=== PATIENT | female | born 1975 | race Caucasian/White ===

== ENCOUNTER 2016-12-11 17:56 | Emergency (ER) | payer OTHER ==
[2016-12-11] MEDS ORDERED: Aspirin 81 MG Tab.Chew PO ONE (18:17)
[2016-12-11] MEDS ORDERED: Sodium Chloride 0.9% 10 ML Syringe FLUSH PRN (18:20)
[2016-12-11 18:26] VITALS: BP 133/94
[2016-12-11] MEDS ORDERED: Alum Hydrox/Mag Hydrox/Simeth 30 ML, Lidocaine 2% 15 ML PO ONE ×2 (19:24)
[2016-12-11] MEDS ORDERED: Ketorolac 30 MG/ML SDV IVPUSH ONE (19:25)
--- NOTE | 2016-12-11 20:00 | EDM.PDOC ---
ED HPI GENERAL MEDICAL PROBLEM - General Chief Complaint: Chest Pain Stated Complaint: CHEST PAIN Time Seen by Provider: 12/11/16 18:31 Source of Information: Reports: Patient History Limitations: Reports: No limitations - History of Present Illness INITIAL COMMENTS - FREE TEXT/NARRATIVE: 41-year-old female presents for evaluation and treatment of chest pain. Patient reports the chest pain is located in the center of her chest and radiates up into her jaw and her neck. Denies any radiation into her back or arm. Describes it as a pressure sensation. She reports that it started last night. She states that it went away on its own. She states she's had chest discomfort throughout the day but it is always gone away. Reports that it has been constant since about 5:00 this evening. She reports associated symptoms of epigastric pain, diaphoresis and shortness of breath. She denies any fevers, chills, cough, nausea or vomiting. The patient reports that she is a type I diabetic on insulin pump. reports that she is a current everyday smoker and smokes a pack a day. She denies any cardiac history herself. She states she's never had a heart attack or arrhythmia. Patient reports family history of a grandmother with heart attacks reports this was an old age. She reports several strokes in her family. Chest Pain Score (Numeric/FACES): 8 - Related Data Allergies Allergy/AdvReac Type Severity Reaction Status Date / Time lisinopril Allergy Cough Verified 12/11/16 18:08 Home Meds: Home Meds Cholecalciferol (Vitamin D3) [Vitamin D] 10,000 unit PO WEEKLY 10/10/14 [History ] Insulin Aspart [NovoLOG] 0 unit SQ WITHMEALSANDBED 10/10/14 [History] Escitalopram Oxalate [Lexapro] 20 mg PO DAILY 05/18/15 [History] Levothyroxine 125 mcg PO ACBREAKFAST 05/18/15 [History] Zolpidem [Ambien] 12/11/16 [History] Past Medical History Other HEENT History: wears eyeglasses Other 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: L) elbow, L) foot fx's Endocrine/Metabolic History: Reports: Diabetes, type I - Past Surgical History HEENT Surgical History: Reports: Oral surgery Social & Family History - Tobacco Use Smoking Status *Q: Current Every Day Smoker Years of Tobacco use: 20 Packs/Tins Daily: 1 - Alcohol Use Days Per Week of Alcohol Use: 2 Number of Drinks Per Day: 1 Total Drinks Per Week: 2 - Recreational Drug Use Recreational Drug Use: No ED ROS GENERAL - Review of Systems Review Of Systems: See Below Constitutional: Reports: diaphoresis. Denies: fever Respiratory: Reports: Shortness of Breath. Denies: Cough Cardiovascular: Reports: Chest pain GI/Abdominal: Reports: Abdominal pain (epigastric). Denies: Nausea, Vomiting ED EXAM, GENERAL - Physical Exam Exam: See Below Exam Limited By: No limitations General Appearance: alert, WD/WN, no apparent distress Respiratory/Chest: no respiratory distress, lungs clear, normal breath sounds Cardiovascular: normal peripheral pulses, regular rate, rhythm, no murmur GI/Abdominal: Normal Bowel Sounds, Soft, Non-Tender Neurological: alert, oriented, normal cognition Psychiatric: normal affect, normal mood Skin Exam: Warm, Dry, Normal color EKG INTERPRETATION EKG Date: 12/11/16 Time: 18:15 Rhythm: NSR Rate (beats/min): 99 [place]: normal P-wave: present QRS: normal ST-T: normal QT: normal EKG Interpretation Comments: NSR at 99bpm. No acute changes. Reviewed by myself and Dr. Mathur. Course - Vital Signs Last Recorded V/S: Last Vital Signs Temp 36.9 C 12/11/16 18:05 Pulse 104 H 12/11/16 18:05 Resp 18 12/11/16 18:05 BP 133/94 H 12/11/16 18:05 Pulse Ox 99 12/11/16 18:05 - Orders/Labs/Meds Orders: Active Orders 24 hr Category Date Time Status Cardiac Monitoring [RC] . DIRECTED Care 12/11/16 18:17 Active EKG Documentation Completion [RC] STAT Care 12/11/16 18:17 Active Peripheral IV Care [RC] . DIRECTED Care 12/11/16 18:20 Active Chest 1V Frontal [CR] Stat Exams 12/11/16 18:17 Taken Peripheral IV Insertion Adult [OM.PC] Routine Oth 12/11/16 18:20 Ordered Labs: Laboratory Tests 12/11/16 12/11/16 12/11/16 Range/Units 18:21 18:21 18:21 WBC 10.37 H (3.98-10.04) K/mm3 RBC 5.22 (3.98-5.22) M/mm3 Hgb 16.2 H (11.2-15.7) gm/L Hct 45.3 H (34.1-44.9) % MCV 86.8 (79.4-94.8) fl MCH 31.0 (25.6-32.2) pg MCHC 35.8 H (32.2-35.5) g/dl RDW Std Deviation 39.4 (36.4-46.3) fL Plt Count 246 (182-369) K/mm3 MPV 10.2 (9.4-12.3) fl Neut % (Auto) 56.3 (34.0-71.1) % Lymph % (Auto) 33.1 (19.3-51.7) % [place] % (Auto) 8.1 (4.7-12.5) % Eos % (Auto) 1.8 (0.7-5.8) Baso % (Auto) 0.5 (0.1-1.2) % Neut # (Auto) 5.84 (1.56-6.13) K/mm3 Lymph # (Auto) 3.43 (1.18-3.74) K/mm3 [place] # (Auto) 0.84 H (0.24-0.36) K/mm3 Eos # (Auto) 0.19 (0.04-0.36) K/mm3 Baso # (Auto) 0.05 (0.01-0.08) K/mm3 PT 10.0 (8.0-13.0) SECONDS INR 0.92 D-Dimer, Quantitative (0.19-0.59) mg/L Sodium 135 L (136-145) mEq/L Potassium 3.7 (3.5-5.1) mEq/L Chloride 102 (98-107) mEq/L Carbon Dioxide 24 (21-32) mEq/L Anion Gap 12.7 (5-15) BUN 13 (7-18) mg/dL Creatinine 0.8 (0.55-1.02) mg/dL Est Cr Clr Drug Dosing TNP Estimated GFR (MDRD) > 60 (>60) mL/min BUN/Creatinine Ratio 16.3 (14-18) Glucose 170 H (74-106) mg/dL Calcium 8.9 (8.5-10.1) mg/dL Total Bilirubin 0.4 (0.2-1.0) mg/dL AST 12 L (15-37) U/L ALT 20 (14-59) U/L Alkaline Phosphatase 74 (46-116) U/L CK-MB (CK-2) 0.9 (0-3.6) ng/ml Troponin I < 0.017 (0.00-0.056) ng/mL Total Protein 7.1 (6.4-8.2) g/dl Albumin 3.7 (3.4-5.0) g/dl Globulin 3.4 gm/dL Albumin/Globulin Ratio 1.1 (1-2) Lipase 99 (73-393) U/L 12/11/16 Range/Units 18:21 WBC (3.98-10.04) K/mm3 RBC (3.98-5.22) M/mm3 Hgb (11.2-15.7) gm/L Hct (34.1-44.9) % MCV (79.4-94.8) fl MCH (25.6-32.2) pg MCHC (32.2-35.5) g/dl RDW Std Deviation (36.4-46.3) fL Plt Count (182-369) K/mm3 MPV (9.4-12.3) fl Neut % (Auto) (34.0-71.1) % Lymph % (Auto) (19.3-51.7) % [place] % (Auto) (4.7-12.5) % Eos % (Auto) (0.7-5.8) Baso % (Auto) (0.1-1.2) % Neut # (Auto) (1.56-6.13) K/mm3 Lymph # (Auto) (1.18-3.74) K/mm3 [place] # (Auto) (0.24-0.36) K/mm3 Eos # (Auto) (0.04-0.36) K/mm3 Baso # (Auto) (0.01-0.08) K/mm3 PT (8.0-13.0) SECONDS INR D-Dimer, Quantitative < 0.19 L (0.19-0.59) mg/L Sodium (136-145) mEq/L Potassium (3.5-5.1) mEq/L Chloride (98-107) mEq/L Carbon Dioxide (21-32) mEq/L Anion Gap (5-15) BUN (7-18) mg/dL Creatinine (0.55-1.02) mg/dL Est Cr Clr Drug Dosing Estimated GFR (MDRD) (>60) mL/min BUN/Creatinine Ratio (14-18) Glucose (74-106) mg/dL Calcium (8.5-10.1) mg/dL Total Bilirubin (0.2-1.0) mg/dL AST (15-37) U/L ALT (14-59) U/L Alkaline Phosphatase (46-116) U/L CK-MB (CK-2) (0-3.6) ng/ml Troponin I (0.00-0.056) ng/mL Total Protein (6.4-8.2) g/dl Albumin (3.4-5.0) g/dl Globulin gm/dL Albumin/Globulin Ratio (1-2) Lipase (73-393) U/L Meds: Medications Discontinued Medications Generic Name Dose Route Start Last Admin Trade Name Freq PRN Reason Stop Dose Admin Aspirin 324 mg 12/11/16 18:17 12/11/16 19:06 Aspirin PO 12/11/16 18:18 324 mg ONETIME ONE Administration Al Hydroxide/Mg Hydroxide 30 0 ml 12/11/16 19:24 12/11/16 19:31 ml/ Lidocaine HCl 15 ml PO 12/11/16 19:25 45 ml ONETIME ONE Administration Ketorolac Tromethamine 30 mg 12/11/16 19:25 12/11/16 19:31 Toradol IVPUSH 12/11/16 19:26 30 mg ONETIME ONE Administration Sodium Chloride 10 ml 12/11/16 18:20 12/11/16 19:07 Saline Flush FLUSH 10 ml ASDIRECTED PRN Administration Keep Vein Open - Radiology Interpretation Free Text/Narrative:: chest 1 view shows no acute intrathoracic process. - Re-Assessments/Exams Free Text/Narrative Re-Assessment/Exam: 12/11/16 19:26 Labs returned. WBC is mildly elevated at 10.37, hgb is 16.2 and plts are 246 Sodium is 135, potassium is 3.7, chloride is 102. Anion gap is 12.7. Glucose is 170 Pt is 10.0 and INR is 0.92 CKMB is within normal limits at 0.9 trop is within normal limits <0.017 lipase is 99 I reviewed the labs, ekg and chest xray with the patient. I added on a d dimer as the patient continues to have chest pain and continues to be tachycardic in the low 100s. Ordered toradol and a GI cocktail for symptom relief. 12/11/16 20:00 D dimer returned negative at <0.19 Patient feels greatly improved after toradol and the GI cocktail. Will discharge home at this time. Discharge instructions as documented. Departure - Departure Time of Disposition: 20:01 Disposition: Home, Self-Care 01 Condition: good Clinical Impression: GERD (gastroesophageal reflux disease) Instructions: Gastroesophageal Reflux Disease, Adult Referrals: Anna Thomsa PA [Primary Care Provider] - Forms: ED Department Discharge Additional Instructions: Continue with your current plan of care. May take [id number] Tums or another antacid if you experience discomfort. Follow up primary care provider as needed. Please return to the ER should your symptoms change or worsen. - My Orders Last 24 Hours: My Active Orders 12/11/16 18:17 Cardiac Monitoring [RC] . DIRECTED EKG Documentation Completion [RC] STAT Chest 1V Frontal [CR] Stat 12/11/16 18:20 Peripheral IV Care [RC] . DIRECTED Peripheral IV Insertion Adult [OM.PC] Routine - Assessment/Plan Last 24 Hours: My Active Orders 12/11/16 18:17 Cardiac Monitoring [RC] . DIRECTED EKG Documentation Completion [RC] STAT Chest 1V Frontal [CR] Stat 12/11/16 18:20 Peripheral IV Care [RC] . DIRECTED Peripheral IV Insertion Adult [OM.PC] Routine
--- NOTE | 2016-12-12 08:28 | CR ---
Chest: Portable view of the chest was obtained. Comparison: Previous chest x-ray of 05/22/16. Heart size and mediastinum are normal. Lungs are clear. Bony structures are grossly intact. Impression: 1. Nothing acute is identified on portable chest x-ray. Diagnostic code #1
== END 2016-12-11 20:29 | disposition home or self-care (01) ==
LOC: JD.ED 17:56
DX: K21.9 Gastro-esophageal reflux disease without esophagitis (principal); E10.9 Type 1 diabetes mellitus without complications; F17.210 Nicotine dependence, cigarettes, uncomplicated; Z79.899 Other long term (current) drug therapy; Z88.8 Allergy status to other drugs, medicaments and biological substances
CPT/HCPCS: 36415; 71010; 80053; 82553; 83690; 84484; 85025; 85379; 85610; 93005; 96374; 99285; A9270; J1885; J7050; 99284

== ENCOUNTER 2017-07-29 12:40 | Emergency (ER) | payer BC ==
[2017-07-29 13:04] VITALS: BP 131/95
[2017-07-29] MEDS ORDERED: Famotidine 20 MG/2 ML SDV IVPUSH ONE (13:14)
[2017-07-29] MEDS ORDERED: Ondansetron 4 MG/2 ML SDV IVPUSH ONE (13:14)
[2017-07-29] MEDS ORDERED: Sodium Chloride 0.9% 10 ML Syringe FLUSH PRN (13:14)
[2017-07-29] MEDS ORDERED: HYDROmorphone 1 MG/ML Syringe IVPUSH ONE (13:14)
[2017-07-29] MEDS ORDERED: Sodium Chloride 0.9% 1,000 ML IV SCH (13:15)
--- NOTE | 2017-07-29 13:22 | EDM.PDOC ---
ED HPI GENERAL MEDICAL PROBLEM - General Chief Complaint: Abdominal Pain Stated Complaint: ABDOMINAL PAIN Time Seen by Provider: 07/29/17 12:49 Source of Information: Reports: Patient, RN Notes Reviewed - History of Present Illness INITIAL COMMENTS - FREE TEXT/NARRATIVE: 42-year-old female comes in with abdominal pain nausea and 2 episodes of diarrhea yesterday. She states she started with nonspecific mid abdominal discomfort yesterday early afternoon about 24 hours ago. She did become nauseated and that has continued. She has not been eating, drinking some but not a lot of fluids. She did have a loose stool yesterday afternoon followed by one episode of very watery diarrhea. There is been no further diarrhea. She continues with mid and right-sided abdominal pain with some radiation to her right flank and back. No fever or chills. History of prior cholecystectomy. She still does have her appendix. No voiding symptomatology. She is diabetic. She has an insulin pump. She states her sugars have been running okay, around 200. Right Lower Abdomen Pain Score (Numeric/FACES): 8 - Related Data Allergies Allergy/AdvReac Type Severity Reaction Status Date / Time lisinopril Allergy Cough Verified 07/29/17 12:52 Home Meds: Home Meds Cholecalciferol (Vitamin D3) [Vitamin D] 10,000 unit PO WEEKLY 10/10/14 [History ] Insulin Aspart [NovoLOG] 0 unit SQ WITHMEALSANDBED 10/10/14 [History] Escitalopram Oxalate [Lexapro] 20 mg PO DAILY 05/18/15 [History] Levothyroxine 175 mcg PO ACBREAKFAST 05/18/15 [History] Zolpidem [Ambien] 12.5 mg PO QPM PRN 12/11/16 [History] Past Medical History HEENT History: Reports: Impaired Vision Other 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 History: 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: left foot fracture in past Psychiatric History: Reports: Depression Endocrine/Metabolic History: Reports: Diabetes, Type I, Hypothyroidism - Past Surgical History HEENT Surgical History: Reports: Oral Surgery GI Surgical History: Reports: Cholecystectomy Social & Family History - Tobacco Use Smoking Status *Q: Former Smoker Years of Tobacco use: 20 Packs/Tins Daily: 1 Used Tobacco, but Quit: Yes Month Tobacco Last Used: unknown - Caffeine Use Caffeine Use: Reports: Coffee, Soda - Alcohol Use Days Per Week of Alcohol Use: 2 Number of Drinks Per Day: 1 Total Drinks Per Week: 2 - Recreational Drug Use Recreational Drug Use: No ED ROS GENERAL - Review of Systems Review Of Systems: See Below Constitutional: Denies: Fever, Chills, Diaphoresis HEENT: Reports: No Symptoms Respiratory: Denies: Shortness of Breath, Pleuritic Chest Pain Cardiovascular: Denies: Chest Pain GI/Abdominal: Reports: Abdominal Pain, Diarrhea, Nausea. Denies: Constipation, Vomiting Musculoskeletal: Reports: Other (Feel somewhat achy) Skin: Reports: No Symptoms Neurological: Reports: No Symptoms ED EXAM, GI/ABD - Physical Exam Exam: See Below General Appearance: Alert, Mild Distress Throat/Mouth: Normal Inspection, Other Head: No: Facial Swelling (Oral mucosa is somewhat dry) Neck: Supple, Full Range of Motion Respiratory/Chest: No Respiratory Distress, Lungs Clear, Normal Breath Sounds Cardiovascular: Regular Rate, Rhythm GI/Abdominal Exam: Soft, Tender (Moderate tenderness right mid abdomen mild tenderness right upper quadrant, right lower quad and left lower abdomen). No: Guarding, Rebound Back Exam: CVA Tenderness (R) (Mild) Extremities: Normal Inspection, Normal Range of Motion Neurological: Alert, Oriented, No Motor/Sensory Deficits Skin Exam: Warm, Dry, Normal Color Course - Vital Signs Last Recorded V/S: Last Vital Signs Temp 98.4 F 07/29/17 12:46 Pulse 99 07/29/17 12:46 Resp 12 07/29/17 12:46 BP 131/95 H 07/29/17 12:46 Pulse Ox 100 07/29/17 12:46 - Orders/Labs/Meds Orders: Active Orders 24 hr Category Date Time Status Peripheral IV Care [RC] . DIRECTED Care 07/29/17 13:14 Active Sodium Chloride 0.9% [Normal Saline] 1,000 ml Med 07/29/17 13:15 Active IV ONETIME Sodium Chloride 0.9% [Saline Flush] Med 07/29/17 13:14 Active 10 ml FLUSH ASDIRECTED PRN Peripheral IV Insertion Adult [OM.PC] Stat Oth 07/29/17 13:13 Ordered Medication Orders Sodium Chloride (Normal Saline) 1,000 mls @ 999 mls/hr IV ONETIME [facility] Last Admin: 07/29/17 13:26 Dose: 999 mls/hr Sodium Chloride (Saline Flush) 10 ml FLUSH ASDIRECTED PRN PRN Reason: Keep Vein Open Last Admin: 07/29/17 13:28 Dose: 10 ml Labs: Laboratory Tests 07/29/17 07/29/17 07/29/17 Range/Units 13:00 13:25 13:25 WBC 7.97 (3.98-10.04) K/mm3 RBC 5.06 (3.98-5.22) M/mm3 Hgb 15.6 (11.2-15.7) gm/L Hct 44.2 (34.1-44.9) % MCV 87.4 (79.4-94.8) fl MCH 30.8 (25.6-32.2) pg MCHC 35.3 (32.2-35.5) g/dl RDW Std Deviation 40.6 (36.4-46.3) fL Plt Count 254 (182-369) K/mm3 MPV 9.8 (9.4-12.3) fl Neut % (Auto) 53.7 (34.0-71.1) % Lymph % (Auto) 33.2 (19.3-51.7) % [place] % (Auto) 10.0 (4.7-12.5) % Eos % (Auto) 2.3 (0.7-5.8) Baso % (Auto) 0.5 (0.1-1.2) % Neut # (Auto) 4.28 (1.56-6.13) K/mm3 Lymph # (Auto) 2.65 (1.18-3.74) K/mm3 [place] # (Auto) 0.80 H (0.24-0.36) K/mm3 Eos # (Auto) 0.18 (0.04-0.36) K/mm3 Baso # (Auto) 0.04 (0.01-0.08) K/mm3 Sodium (136-145) mEq/L Potassium (3.5-5.1) mEq/L Chloride (98-107) mEq/L Carbon Dioxide (21-32) mEq/L Anion Gap (5-15) BUN (7-18) mg/dL Creatinine (0.55-1.02) mg/dL Est Cr Clr Drug Dosing mL/min Estimated GFR (MDRD) (>60) mL/min BUN/Creatinine Ratio (14-18) Glucose (74-106) mg/dL Calcium (8.5-10.1) mg/dL Total Bilirubin (0.2-1.0) mg/dL AST (15-37) U/L ALT (14-59) U/L Alkaline Phosphatase (46-116) U/L C-Reactive Protein < 0.2 (<1.0) mg/dL Total Protein (6.4-8.2) g/dl Albumin (3.4-5.0) g/dl Globulin gm/dL Albumin/Globulin Ratio (1-2) HCG, Qual (NEGATIVE) Urine Color Yellow (Yellow) Urine Appearance Clear (Clear) Urine pH 6.5 (5.0-8.0) Ur Specific [place] 1.015 (1.005-1.030) Urine Protein Negative (Negative) Urine Glucose (UA) Negative (Negative) Urine Ketones Negative (Negative) Urine Occult Blood Negative (Negative) Urine Nitrite Negative (Negative) Urine Bilirubin Negative (Negative) Urine Urobilinogen 1.0 (0.2-1.0) Ur Leukocyte Esterase Negative (Negative) Urine RBC 0-5 (0-5) /hpf Urine WBC 0-5 (0-5) /hpf Ur Epithelial Cells 0-5 (0-5) /hpf Urine Bacteria Few (FEW) /hpf Urine Mucus Not seen (FEW) /hpf 07/29/17 07/29/17 Range/Units 13:25 13:25 WBC (3.98-10.04) K/mm3 RBC (3.98-5.22) M/mm3 Hgb (11.2-15.7) gm/L Hct (34.1-44.9) % MCV (79.4-94.8) fl MCH (25.6-32.2) pg MCHC (32.2-35.5) g/dl RDW Std Deviation (36.4-46.3) fL Plt Count (182-369) K/mm3 MPV (9.4-12.3) fl Neut % (Auto) (34.0-71.1) % Lymph % (Auto) (19.3-51.7) % [place] % (Auto) (4.7-12.5) % Eos % (Auto) (0.7-5.8) Baso % (Auto) (0.1-1.2) % Neut # (Auto) (1.56-6.13) K/mm3 Lymph # (Auto) (1.18-3.74) K/mm3 [place] # (Auto) (0.24-0.36) K/mm3 Eos # (Auto) (0.04-0.36) K/mm3 Baso # (Auto) (0.01-0.08) K/mm3 Sodium 139 (136-145) mEq/L Potassium 3.9 (3.5-5.1) mEq/L Chloride 104 (98-107) mEq/L Carbon Dioxide 24 (21-32) mEq/L Anion Gap 14.9 (5-15) BUN 7 (7-18) mg/dL Creatinine 0.7 (0.55-1.02) mg/dL Est Cr Clr Drug Dosing 83.65 mL/min Estimated GFR (MDRD) > 60 (>60) mL/min BUN/Creatinine Ratio 10.0 L (14-18) Glucose 160 H (74-106) mg/dL Calcium 9.0 (8.5-10.1) mg/dL Total Bilirubin 0.4 (0.2-1.0) mg/dL AST 14 L (15-37) U/L ALT 26 (14-59) U/L Alkaline Phosphatase 60 (46-116) U/L C-Reactive Protein (<1.0) mg/dL Total Protein 7.1 (6.4-8.2) g/dl Albumin 3.5 (3.4-5.0) g/dl Globulin 3.6 gm/dL Albumin/Globulin Ratio 1.0 (1-2) HCG, Qual Negative (NEGATIVE) Urine Color (Yellow) Urine Appearance (Clear) Urine pH (5.0-8.0) Ur Specific [place] (1.005-1.030) Urine Protein (Negative) Urine Glucose (UA) (Negative) Urine Ketones (Negative) Urine Occult Blood (Negative) Urine Nitrite (Negative) Urine Bilirubin (Negative) Urine Urobilinogen (0.2-1.0) Ur Leukocyte Esterase (Negative) Urine RBC (0-5) /hpf Urine WBC (0-5) /hpf Ur Epithelial Cells (0-5) /hpf Urine Bacteria (FEW) /hpf Urine Mucus (FEW) /hpf Meds: Medications Generic Name Dose Route Start Last Admin Trade Name Freq PRN Reason Stop Dose Admin Sodium Chloride 1,000 mls @ 999 mls/hr 07/29/17 13:15 07/29/17 13:26 Normal Saline IV 999 mls/hr ONETIME CORNELIO Administration Sodium Chloride 10 ml 07/29/17 13:14 07/29/17 13:28 Saline Flush FLUSH 10 ml ASDIRECTED PRN Administration Keep Vein Open Discontinued Medications Generic Name Dose Route Start Last Admin Trade Name Freq PRN Reason Stop Dose Admin Famotidine 20 mg 07/29/17 13:14 07/29/17 13:28 Pepcid IVPUSH 07/29/17 13:15 20 mg ONETIME ONE Administration Hydromorphone HCl 0.5 mg 07/29/17 13:14 07/29/17 13:27 Dilaudid IVPUSH 07/29/17 13:15 0.5 mg ONETIME ONE Administration Hydromorphone HCl 0.5 mg 07/29/17 14:33 07/29/17 14:49 Dilaudid IVPUSH 07/29/17 14:34 0.5 mg ONETIME ONE Administration Hydromorphone HCl 0.5 mg 07/29/17 16:02 07/29/17 16:07 Dilaudid IVPUSH 07/29/17 16:03 0.5 mg ONETIME ONE Administration Ondansetron HCl 4 mg 07/29/17 13:14 07/29/17 13:27 Zofran IVPUSH 07/29/17 13:15 4 mg ONETIME ONE Administration - Re-Assessments/Exams Free Text/Narrative Re-Assessment/Exam: 07/29/17 14:36. Labs have come back relatively normal. She did get some relief initially from 0.5 mg Dilaudid and feels better with IV fluid. All the pain and cramping is once again coming back right flank with radiation to right lower abdomen. 4 we will do abdominal pelvic CT, renal protocol to rule out kidney stone. 07/29/17 16:03. Renal CT does not show a kidney stone or any dilatation of either ureter. Appendix was visualized and looks fine. She does have a fairly large 3.5 cm right ovarian cyst which may be causing her discomfort or this may be more gastrointestinal. She is starting to have more pain again so we'll give a further 0.5 mg Dilaudid IV dose before taking IV out. Discharge instructions as documented. Departure - Departure Time of Disposition: 16:04 Disposition: Home, Self-Care 01 Condition: Fair Clinical Impression: Abdominal pain Qualifiers: Abdominal location: right lower quadrant Qualified Code(s): R10.31 - Right lower quadrant pain Ovarian cyst Qualifiers: Laterality: right Qualified Code(s): N83.201 - Unspecified ovarian cyst, right side - Discharge Information Instructions: Abdominal Pain, Adult, Ovarian Cyst Referrals: Anna Thomas PA [Primary Care Provider] - Forms: ED Department Discharge Additional Instructions: Clear liquids the remainder of today, progress to careful bland diet tomorrow as tolerated, use the Zofran that you already do have if needed for any further nausea or vomiting. Consider starting probiotic twice daily, available [id number], Tylenol for mild to moderate discomfort or hydrocodone if needed for more severe pain, follow-up clinic if not getting back to normal within 2-3 days as expected, return to ED if symptoms worsening in any way. - My Orders Last 24 Hours: My Active Orders 07/29/17 13:13 Peripheral IV Insertion Adult [OM.PC] Stat 07/29/17 13:14 Peripheral IV Care [RC] . DIRECTED Sodium Chloride 0.9% [Saline Flush] 10 ml FLUSH ASDIRECTED PRN 07/29/17 13:15 Sodium Chloride 0.9% [Normal Saline] 1,000 ml IV ONETIME - Assessment/Plan Last 24 Hours: My Active Orders 07/29/17 13:13 Peripheral IV Insertion Adult [OM.PC] Stat 07/29/17 13:14 Peripheral IV Care [RC] . DIRECTED Sodium Chloride 0.9% [Saline Flush] 10 ml FLUSH ASDIRECTED PRN 07/29/17 13:15 Sodium Chloride 0.9% [Normal Saline] 1,000 ml IV ONETIME
[2017-07-29] MEDS ORDERED: HYDROmorphone 0.5 MG/0.5 ML Syringe IVPUSH ONE ×2 (14:33→16:02)
--- NOTE | 2017-07-29 15:40 | CT ---
CT abdomen and pelvis Technique: Multiple axial sections were obtained from above the dome of the diaphragm inferiorly through the pubic symphysis. Intravenous and oral contrast not utilized. Study has been performed as a ureteral stone protocol. Findings: Ureters show no dilatation. No abnormal calcifications are seen along the course of the ureters. Kidneys show no abnormal calcifications. Visualized lung bases shows nothing acute. Liver shows no focal parenchymal abnormality. Spleen appears within normal limits. Surgical clips are seen from prior cholecystectomy. Adrenal glands appear within normal limits. Pancreas appears normal. Aorta shows no aneurysmal dilatation. No retroperitoneal adenopathy or mesenteric abnormalities are seen. No pelvic mass or adenopathy is seen. Slightly complicated right ovarian cyst is seen measuring 3.5 cm in size. No free fluid is seen within the pelvis. No inflammatory change is seen. Appendix is seen which appears normal. Bone window settings were reviewed which appear within normal limits for the patient's age. Impression: 1. No renal calculi or ureteral stones are seen. No hydronephrosis is noted. 2. Right ovarian cyst measuring about 3.5 cm in size which appears slightly complicated. No free fluid seen within the pelvis. 3. Mild increased stool is noted throughout the colon. Diagnostic code #3
== END 2017-07-29 16:57 | disposition home or self-care (01) ==
LOC: JD.ED 12:40
DX: N83.201 Unspecified ovarian cyst, right side (principal); Z88.8 Allergy status to other drugs, medicaments and biological substances; Z79.899 Other long term (current) drug therapy; Z87.891 Personal history of nicotine dependence
CPT/HCPCS: 36415; 74176; 80053; 81001; 84703; 85025; 86140; 96361; 96374; 96375; 96376; 99284; J1170; J2405; J7040; J7050

== ENCOUNTER 2017-08-07 06:20 | Day surgery (SDC) | payer BC, OTHER ==
[~2017-08-07 06:20] MED LIST: Lidocaine 1%/Sod Bicarbonate in NS 8.4% 1 ML Syringe IV PRN; Sodium Chloride 0.9% 10 ML Syringe FLUSH PRN
[2017-08-07] MEDS: Lactated Ringers 1,000 ML IV SCH ×2 (07:00→13:12)
[2017-08-07] MEDS ORDERED: Sodium Chloride 0.9% 50 ML SDV ONE (07:14)
[2017-08-07] MEDS ORDERED: Lidocaine 1% with EPINEPHrine 1:100,000 20 ML MDV ONE (07:14)
[2017-08-07] MEDS ORDERED: Bupivacaine 0.5% 30 ML SDV ONE (07:14)
[2017-08-07] MEDS ORDERED: Rocuronium 50 MG/5 ML Vial ONE ×2 (07:26→09:21)
[2017-08-07] MEDS ORDERED: fentaNYL 250 MCG/5 ML SDV ONE (07:26)
[2017-08-07] MEDS ORDERED: Midazolam 1 MG/ML 2 ML SDV ONE (07:26)
[2017-08-07] MEDS ORDERED: Ondansetron 4 MG/2 ML SDV ONE (07:26)
[2017-08-07] MEDS ORDERED: Propofol 200 MG/20 ML SDV ONE (07:26)
[2017-08-07] MEDS ORDERED: Dexamethasone 4 MG/ML 5 ML MDV ONE (07:26)
[2017-08-07] MEDS ORDERED: Lidocaine 1% 4 ML ONE (07:26)
[2017-08-07] MEDS ORDERED: ceFAZolin 1 GM Vial ONE (07:31)
[2017-08-07] MEDS ORDERED: HYDROmorphone 1 MG/ML Syringe ONE ×2 (07:32→09:12)
--- NOTE | 2017-08-07 07:48 | PCM.PREANE ---
Preanesthetic Assessment - Anesthesia/Transfusion/Family Hx Anesthesia History: Prior Anesthesia Without Reaction (versed not work) Family History of Anesthesia Reaction: No Transfusion History: No Prior Transfusion(s) - Review of Systems General: No Symptoms Pulmonary: No Symptoms Cardiovascular: No Symptoms Gastrointestinal: Abdominal Pain (cyst) Neurological: No Symptoms Other: Reports: Diabetes, Thyroid Problems, Sinus Problem, Depression, Anxiety - Physical Assessment NPO Status Date: 08/06/17 NPO Status Time: 22:00 O2 Sat by Pulse Oximetry: 97 Respiratory Rate: 16 Vital Signs: Last Vital Signs Temp 98.1 F 08/07/17 06:30 Pulse 95 08/07/17 06:30 Resp 16 08/07/17 06:30 BP 125/89 08/07/17 06:30 Pulse Ox 97 08/07/17 06:30 Height: 5 ft 5 in Weight: 96.615 kg ASA Class: 3 Mental Status: Alert & Oriented x3 Airway Class: Mallampati = 1 Dentition: Reports: Normal Dentition Thyro-Mental Finger Breadths: 3 Mouth Opening Finger Breadths: 3 ROM/Head Extension: Full Lungs: Clear to Auscultation, Normal Respiratory Effort Cardiovascular: Regular Rate, Regular Rhythm - Lab Values: Laboratory Last Values WBC 7.57 K/mm3 (3.98-10.04) 08/07/17 06:55 RBC 4.59 M/mm3 (3.98-5.22) 08/07/17 06:55 Hgb 14.4 gm/L (11.2-15.7) 08/07/17 06:55 Hct 40.3 % (34.1-44.9) 08/07/17 06:55 MCV 87.8 fl (79.4-94.8) 08/07/17 06:55 MCH 31.4 pg (25.6-32.2) 08/07/17 06:55 MCHC 35.7 g/dl (32.2-35.5) H 08/07/17 06:55 RDW Std Deviation 39.8 fL (36.4-46.3) 08/07/17 06:55 Plt Count 233 K/mm3 (182-369) 08/07/17 06:55 MPV 10.2 fl (9.4-12.3) 08/07/17 06:55 Neut % (Auto) 55.6 % (34.0-71.1) 08/07/17 06:55 Lymph % (Auto) 31.6 % (19.3-51.7) 08/07/17 06:55 Coffee % (Auto) 9.8 % (4.7-12.5) 08/07/17 06:55 Eos % (Auto) 2.2 (0.7-5.8) 08/07/17 06:55 Baso % (Auto) 0.8 % (0.1-1.2) 08/07/17 06:55 Neut # (Auto) 4.21 K/mm3 (1.56-6.13) 08/07/17 06:55 Lymph # (Auto) 2.39 K/mm3 (1.18-3.74) 08/07/17 06:55 Coffee # (Auto) 0.74 K/mm3 (0.24-0.36) H 08/07/17 06:55 Eos # (Auto) 0.17 K/mm3 (0.04-0.36) 08/07/17 06:55 Baso # (Auto) 0.06 K/mm3 (0.01-0.08) 08/07/17 06:55 FBS 234 - Allergies Allergies/Adverse Reactions: Allergies Allergy/AdvReac Type Severity Reaction Status Date / Time lisinopril Allergy Cough Verified 08/06/17 12:52 - Blood Blood Available: Yes - Acknowledgements Anesthesia Type Planned: General Anesthesia Pt an Appropriate Candidate for the Planned Anesthesia: Yes Alternatives and Risks of Anesthesia Discussed w Pt/Guardian: Yes Pt/Guardian Understands and Agrees with Anesthesia Plan: Yes PreAnesthesia Questionnaire HEENT History: Reports: Allergic Rhinitis, Impaired Vision Other HEENT History: wears eyeglasses Cardiovascular History: Reports: High Cholesterol Respiratory History: Reports: Asthma Gastrointestinal History: Reports: GERD, Other (See Below) Other Gastrointestinal History: nausea, vomiting, gastric ulcer Genitourinary History: Reports: STD, Urinary Incontinence 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, , Other (See Below) Other OB/BYN History: genital warts, right ovarian cyst, pelvic pain Other 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: left foot fracture, adductor tendinitis, left hip greater trochanteric bursitis, joint pain Neurological History: Reports: None Psychiatric History: Reports: Anxiety, Depression, Other (See Below) Other Psychiatric History: insomnia Endocrine/Metabolic History: Reports: Diabetes, Type I, Hypothyroidism, Vitamin D Deficiency Hematologic History: Reports: None Immunologic History: Reports: None Oncologic (Cancer) History: Reports: None Dermatologic History: Reports: None - Past Surgical History Head Surgeries/Procedures: Reports: None HEENT Surgical History: Reports: Oral Surgery Cardiovascular Surgical History: Reports: None Respiratory Surgical History: Reports: None GI Surgical History: Reports: Cholecystectomy, Colonoscopy, EGD Female Surgical History: Reports: Endometrial Ablation, Tubal Ligation Endocrine Surgical History: Reports: None Neurological Surgical History: Reports: None Musculoskeletal Surgical History: Reports: None Oncologic Surgical History: Reports: None - SUBSTANCE USE Smoking Status *Q: Former Smoker (quit 3 months ago) Tobacco Use Within Last Twelve Months: Cigarettes Second Hand Smoke Exposure: No Days Per Week of Alcohol Use: 1 Number of Drinks Per Day: 1 Total Drinks Per Week: 1 Recreational Drug Use History: No - HOME MEDS Home Medications: Home Meds Insulin Aspart [NovoLOG] 0 unit SQ WITHMEALSANDBED 10/10/14 [History] Escitalopram Oxalate [Lexapro] 20 mg PO DAILY 05/18/15 [History] Levothyroxine 175 mcg PO Q48H 05/18/15 [History] Zolpidem [Ambien] 12.5 mg PO QPM PRN 12/11/16 [History] Cholecalciferol (Vitamin D3) [Vitamin D3] 50,000 unit PO MOREIRA 08/06/17 [History] Hydrocodone/Acetaminophen [Hydrocodon-Acetaminophen 5-325] 1 - 2 tab PO Q6H PRN 08/06/17 [History] Ibuprofen 600 mg PO Q6H PRN 08/06/17 [History] LORazepam [LORazepam] 0.5 mg PO BID PRN 08/06/17 [History] Levothyroxine 150 mcg PO Q48H 08/06/17 [History] Ondansetron [Ondansetron ODT] 4 mg PO TID PRN 08/06/17 [History] - CURRENT (IN HOUSE) MEDS Current Meds: Current Medications Lactated Ringer's (Ringers, Lactated) 1,000 mls @ 125 mls/hr IV ASDIRECTED CORNELIO Stop: 08/07/17 18:00 Last Admin: 08/07/17 07:00 Dose: 125 mls/hr Lidocaine/Sodium Bicarbonate (Buffered Lidocaine 1% In Ns 8.4%) 0.25 ml IV ONETIME PRN PRN Reason: Prior to IV Start Stop: 08/07/17 18:00 Last Admin: 08/07/17 07:00 Dose: 0.25 ml Sodium Chloride (Saline Flush) 10 ml FLUSH ASDIRECTED PRN PRN Reason: Keep Vein Open Stop: 08/07/17 18:00 Discontinued Medications Bupivacaine HCl (Marcaine 0.5%) Confirm Administered Dose 30 ml .ROUTE .STK-MED ONE Stop: 08/07/17 07:15 Cefazolin Sodium (Ancef) Confirm Administered Dose 2 gm .ROUTE .STK-MED ONE Stop: 08/07/17 07:32 Dexamethasone (Dexamethasone) Confirm Administered Dose 20 mg .ROUTE .STK-MED ONE Stop: 08/07/17 07:27 Fentanyl (Sublimaze) Confirm Administered Dose 250 mcg .ROUTE .STK-MED ONE Stop: 08/07/17 07:27 Hydromorphone HCl (Dilaudid) Confirm Administered Dose 1 mg .ROUTE .STK-MED ONE Stop: 08/07/17 07:33 Lidocaine HCl (Xylocaine-Mpf 1%) Confirm Administered Dose 4 mls @ as directed .ROUTE .STK-MED ONE Stop: 08/07/17 07:27 Lidocaine/Epinephrine (Xylocaine 1% With Epinephrine 1:100,000) Confirm Administered Dose 20 ml .ROUTE .STK-MED ONE Stop: 08/07/17 07:15 Midazolam HCl (Versed 1 Mg/Ml) Confirm Administered Dose 2 mg .ROUTE .STK-MED ONE Stop: 08/07/17 07:27 Ondansetron HCl (Zofran) Confirm Administered Dose 4 mg .ROUTE .STK-MED ONE Stop: 08/07/17 07:27 Propofol (Diprivan 20 Ml) Confirm Administered Dose 200 mg .ROUTE .STK-MED ONE Stop: 08/07/17 07:27 Rocuronium [place] (Zemuron) Confirm Administered Dose 50 mg .ROUTE .STK-MED ONE Stop: 08/07/17 07:27 Sodium Chloride (Normal Saline) Confirm Administered Dose 50 ml .ROUTE .STK-MED ONE Stop: 08/07/17 07:15
[2017-08-07] MEDS ORDERED: Scopolamine 1 MG Transdermal Patch TOP ONE (07:58)
[2017-08-07] MEDS ORDERED: Albuterol 0.083% 2.5 MG/3 ML Neb Soln NEB ONE (08:31)
[2017-08-07] MEDS ORDERED: Ondansetron 4 MG/2 ML SDV IVPUSH PRN (08:31)
[2017-08-07] MEDS ORDERED: HYDROmorphone 0.5 MG/0.5 ML Syringe IVPUSH PRN (08:31)
[2017-08-07] MEDS ORDERED: Meperidine PF 50 MG/ML Syringe IVPUSH PRN (08:31)
[2017-08-07] MEDS ORDERED: Lactated Ringers 1,000 ML ONE ×2 (08:33→10:08)
[2017-08-07] MEDS ORDERED: Neostigmine Methylsulfate 1 MG/ML 5 ML Syringe ONE (09:56)
[2017-08-07] MEDS ORDERED: Ketorolac 30 MG/ML SDV ONE (10:06)
--- NOTE | 2017-08-07 10:18 | PCM.POSTAN ---
POST ANESTHESIA ASSESSMENT - MENTAL STATUS Mental Status: Alert, Oriented - VITAL SIGNS Pulse Rate: 107 SaO2: 97 Resp Rate: 8 Blood Pressure: 151/100 Temperature: 97.8 F - RESPIRATORY Respiratory Status: Respiratory Rate WNL, Airway Patent, O2 Saturation Stable, Supplemental Oxygen - CARDIOVASCULAR CV Status: Pulse Rate WNL, Blood Pressure Stable - GASTROINTESTINAL GI Status: No Symptoms - PAIN Pain Score: 2 - POST OP HYDRATION Hydration Status: Adequate & Stable
--- NOTE | 2017-08-07 10:30 | PCM.OPNOTE ---
- General Post-Op/Procedure Note Date of Surgery/Procedure: 08/07/17 Operative Procedure(s): Laparoscopy scope assisted vaginal hysterectomy, bilateral salpingectomy and right oophorectomy. [id number] Pre Op Diagnosis: Pelvic pain, history of ablation, history of heavy menses. Post-Op Diagnosis: Same Anesthesia Technique: General ET Tube Primary Surgeon: Toy Ivan Secondary Surgeon: Pete Dorado Anesthesia Provider: Brittanie Perales Environmental Protection Specialist: Chani Reason Environmental Protection Specialist Was Necessary: Difficult procedure, assist in retraction, Asst. surgery, decrease co-morbidity and co-mortality Role of Environmental Protection Specialist: Difficult procedure, assist in retraction, Asst. surgery, decrease co-morbidity and co-mortality Fluid Replacement, Intraop: 2,000 Output, Urine Amount: 100 EBL in mLs: 300 Drain/Tube Comments:: None Complications: None Condition: Good Free Text/Narrative:: Patient was transported to operating room #2 and placed under general anesthesia with endotracheal intubation in the low dorsal lithotomy position. Prepared and draped in a sterile fashion. SCDs in place and functioning prior surgery. Patient received Ancef 2 g intravenously prior surgery. Timeout performed confirming name date of and procedure as laparoscope assisted vaginal hysterectomy with bilateral salpingectomy with possible removal of one or both ovaries in (patient had a Pap scope assisted vaginal hysterectomy bilateral salpingectomy with right oophorectomy) uterine manipulator was placed. Ocampo catheter was placed gravity drainage and removed after the procedure. The patient had 2 mL of 0.5% Marcaine injected at the umbilicus and where the midline lower abdominal incision would be made 5 mm incisions were made in pneumoperitoneum was obtained 5 mm trocar introduced at the umbilicus and at the suprapubic area inspection of the pelvis revealed no adhesions or scar tissue that were prohibited proceeding with the lab scope assisted vaginal hysterectomy. Ports were placed on the right and left lower quadrant 2 fingerbreadths 2 fingerbreadths in from the superior iliac crest transilluminating the abdomen to avoid inferior epigastric her vessel damage if possible. Grasping the right adnexa right tube and ovary were removed utilizing Enseal crossclamping activating and incising and proceeding to the triple pedicle then crossclamping and incising after activation the right round ligament proceeding caudad crossclamping activating and incising until the reflection of the lower uterine segment was able to create bladder flap and pushed caudad. The uterine vasculature was then crossclamped activated and incised same procedure was carried out on the opposite side without removal of the left ovary. A additional distal portion of fallopian tube was removed from prior tubal ligation. This was placed and posterior cul-de-sac and subsequently removed at the time of vaginal hysterectomy. Reinspection of the operative site showed no active bleeding and patient was then placed in the dorsal lithotomy position and posterior colpotomy was performed after injecting 20 mL of 0.25% lidocaine with epinephrine and multiple confluent areas and circumscribing the cervix placing long weighted speculum removed utilizing LigaSure crossclamping the uterosacral cardinal ligaments activating incising same procedure carried out on the right side. Then proceeding cephalad 2 additional pedicles were created on the left side and the right side and entry into the anterior cul-de- sac was made without difficulty as well. The uterus was removed intact with the right tube and ovary the remnant of the left tube was also removed from posterior cul-de-sac. There was no active bleeding. The posterior cul-de-sac was closed running locking suture of 0 Monocryl. The anterior posterior cuff then approximated with 0 Monocryl running locking suture. One small avulsion on the left side approximately 1 cm in length at the upper third of the vagina was suture ligated with 0 Monocryl. Reinspection with the laparoscope showed no active bleeding irrigation was carried out and irrigant was aspirated reinspection lowering pressure again showed no bleeding the pneumoperitoneum was reduced and the 4 incisions on the abdomen were closed with 3-0 Monocryl interrupted and Dermabond applied. Patient transported postanesthesia care unit in satisfactory condition after removal of Ocampo catheter. No blood transfusions were required. One set of pictures taken image 001 shows the right adnexa image 002 shows the left adnexa image 003 shows posterior cul-de-sac image 004 shows the right adnexa after removal of the tube and ovary image 005 shows the central portion of the posterior cul-de-sac image 006 shows the left adnexa with the left ovary visible on the left lower quadrant of the picture. Talked with the and all questions answered voiced satisfaction.
[2017-08-07] MEDS ORDERED: fentaNYL 100 MCG/2 ML SDV IVPUSH ONE (11:05)
[2017-08-07] MEDS ORDERED: Acetaminophen/oxyCODONE 325-5 MG Tab PO PRN (11:24)
[2017-08-07 13:11] VITALS: BP 137/96
--- NOTE | 2017-08-07 13:13 | PCM48HPAN ---
Post Anesthesia Note - EVALUATION WITHIN 48HRS OF ANESTHETIC Vital Signs in Normal Range: Yes Patient Participated in Evaluation: Yes Respiratory Function Stable: Yes Airway Patent: Yes Cardiovascular Function Stable: Yes Hydration Status Stable: Yes Pain Control Satisfactory: Yes (Patient said pain just started. is 05/14. Nurse informed) Nausea and Vomiting Control Satisfactory: Yes Mental Status Recovered: Yes
== END 2017-08-07 13:54 | disposition home or self-care (01) ==
LOC: JD.SDS 06:20
PROVIDERS: ATTEND Obstetrics & Gynecology
DX: D25.9 Leiomyoma of uterus, unspecified (principal); N70.11 Chronic salpingitis; N83.8 Other noninflammatory disorders of ovary, fallopian tube and broad ligament; M65.0 Abscess of tendon sheath; F41.9 Anxiety disorder, unspecified; J45.909 Unspecified asthma, uncomplicated; F32.9 Major depressive disorder, single episode, unspecified; A63.0 Anogenital (venereal) warts; E03.9 Hypothyroidism, unspecified; G47.00 Insomnia, unspecified; E55.9 Vitamin D deficiency, unspecified; K21.9 Gastro-esophageal reflux disease without esophagitis; E78.00 Pure hypercholesterolemia, unspecified; E10.9 Type 1 diabetes mellitus without complications; Z98.51 Tubal ligation status; Z87.891 Personal history of nicotine dependence; Z88.8 Allergy status to other drugs, medicaments and biological substances; Z79.899 Other long term (current) drug therapy; Z79.4 Long term (current) use of insulin
CPT/HCPCS: 36415; 51798; 58552; 80053; 82962; 84702; 85025; 86850; 86900; 86901; 93005; A9270; J0690; J1170; J1885; J2250; J2405; J2710; J3010; J7120; 00840; J1100; J2001; J2704

== ENCOUNTER 2019-04-23 11:39 | Emergency (ER) | payer BC ==
[~2019-04-23 11:39] MED LIST changes: +50% Dextrose in Water 50 ML Syringe ONE; -Lidocaine 1%/Sod Bicarbonate in NS 8.4% 1 ML Syringe IV PRN; -Sodium Chloride 0.9% 10 ML Syringe FLUSH PRN
[2019-04-23 11:47] VITALS: BP 141/94; PULSE 102
--- NOTE | 2019-04-23 11:49 | EDM.PDOC ---
ED HPI GENERAL MEDICAL PROBLEM - General Chief Complaint: Diabetic Complaint Stated Complaint: FAINTED Time Seen by Provider: 04/23/19 11:44 Source of Information: Reports: Patient History Limitations: Reports: No Limitations - History of Present Illness INITIAL COMMENTS - FREE TEXT/NARRATIVE: 43-year-old female brought to the ED from the OB department after she developed a 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 Patient has been insulin-dependent diabetic since age 18. She is currently controlled with an insulin pump. She states perhaps she didn't have as much for breakfast this morning as usual. She did apparently lose consciousness for a period of time and I am suspect she had a seizure. Blood sugar on scene rapid response was reported to be 56. Patient is cool clammy and diaphoretic. She now alert oriented. She did receive glucose tabs 5 that she started that she recognized that she was developing a 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 She has also been given an amp of D50 percent prior to coming to the ED. Blood sugar at the bedside is up to 239. She is feeling fine now. She will be given a diabetic dinner. On sugar will be checked 45 minutes after the dextrose was given IV. She has discontinued her insulin pump for now. She's been using insulin pumps for about 10 years. This is the third one that she's used. The nurses who attended to initially identify that she did suffer a seizure disorder lasting about 30 seconds with grand mal tonic-clonic activity. My suspicions. Onset: Today Onset Date: 04/23/19 Onset Time: 11:05 Duration: Minutes: Location: Reports: Generalized (Patient passed out on the OB richards. She recognized that she was developing hypoglycemia and had started taking glucose tablets orally. She believes she took about 5 minutes he still went unresponsive. Response was called and her blood sugar was found to be 56. She rapidly regained consciousness and normal cognition after receiving an amp of D50 IV. Her insulin pump has been discontinued.) Quality: Reports: Other Severity: Severe (Syncopal event secondary to a severe hypoglycemic reaction) Improves with: Reports: Other (Improved promptly with IV dextrose 50% 1 amp.) Worsens with: Reports: None Context: Reports: Other (Insulin-dependent of definite diabetic home expressed a insulin reaction this morning). Denies: Activity, Exercise, Lifting, Sick Contact, Trauma Associated Symptoms: Reports: Confusion, Diaphoresis, Malaise, Syncope, Other. Denies: Chest Pain, Cough, cough w sputum, Headaches, Nausea/Vomiting, Seizure Treatments PERSONAL VEHICLE ADVISOR: Reports: Other (see below) (Received an amp of D50 IV by nursing staff who attended the rapid response a recognized blood sugar low at 56. Take an oral glucose tablets 5 prior to passing out.) Headache Pain Score (Numeric/FACES): 6 - Related Data Allergies Allergy/AdvReac Type Severity Reaction Status Date / Time lisinopril AdvReac Cough Verified 04/23/19 11:42 Home Meds: Home Meds Insulin Aspart [NovoLOG] 0 unit SQ ASDIRECTED 10/10/14 [History] Cholecalciferol (Vitamin D3) [Vitamin D3] 50,000 unit PO MOREIRA 08/06/17 [History] LORazepam 0.5 mg PO BID PRN 08/06/17 [History] Ondansetron [Zofran ODT] 4 mg PO Q6H #20 tab.dis 08/07/17 [Rx] Glucagon,Human Recombinant [Glucagon Emergency Kit] 1 dose IM ASDIRECTED PRN [History] Varenicline Tartrate [Chantix] 1 tab PO BID 02/26/18 [History] Levothyroxine Sodium [Synthroid] 7 mcg PO DAILY 07/11/18 [History] buPROPion HCl [Wellbutrin Xl] 300 mg PO DAILY 07/11/18 [History] Past Medical History HEENT History: Reports: Allergic Rhinitis, Impaired Vision Other HEENT History: wears eyeglasses Cardiovascular History: Reports: High Cholesterol Respiratory History: Reports: Asthma Gastrointestinal History: Reports: GERD, Other (See Below) Other Gastrointestinal History: nausea, vomiting, gastric ulcer Genitourinary History: Reports: STD, Urinary Incontinence 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: Endometrial Ablation, , Other (See Below) Other SENIOR SALESFORCE DEVELOPER History: genital warts, right ovarian cyst, pelvic pain Other 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: left foot fracture, adductor tendinitis, left hip greater trochanteric bursitis, joint pain Neurological History: Reports: None Psychiatric History: Reports: Anxiety, Depression, Other (See Below) Other Psychiatric History: insomnia Endocrine/Metabolic History: Reports: Diabetes, Type I, Hypothyroidism, Vitamin D Deficiency Hematologic History: Reports: None Immunologic History: Reports: None Oncologic (Cancer) History: Reports: None Dermatologic History: Reports: None - Past Surgical History Female Surgical History: Reports: Endometrial Ablation, Tubal Ligation Social & Family History - Caffeine Use Caffeine Use: Reports: Coffee, Soda - Living Situation & Occupation Living situation: Reports: Single Occupation: Unemployed ED ROS GENERAL - Review of Systems Review Of Systems: See Below Constitutional: Reports: Malaise, Fatigue. Denies: Fever, Chills HEENT: Reports: Glasses Respiratory: Reports: No Symptoms Cardiovascular: Reports: No Symptoms Endocrine: Reports: Fatigue, Low Glucose GI/Abdominal: Reports: No Symptoms : Reports: Frequency Musculoskeletal: Reports: Other Skin: Reports: No Symptoms Neurological: Reports: Confusion, Dizziness (Transient confusion and dizziness with development of hypoglycemic reaction), Syncope (Due to hypoglycemic reaction this morning) ED EXAM GENERAL NO PERIP PULSE - Physical Exam Exam: See Below Exam Limited By: No Limitations General Appearance: Alert, WD/WN, No Apparent Distress, Other (Vital signs showed temperature 36.8. Pulse 102 in sinus spectra to 16 BP 1 4194 sats 98% on room air. Only complaint is that of a headache.) Eye Exam: Bilateral Eye: Normal Inspection Throat/Mouth: Normal Inspection, Normal Oropharynx, Other (He feels like she may have bitten the left side of her tongue and there is a mild neck to the left lateral tongue suggesting she may have had a mild seizure as part of her 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 There is no active bleeding however.) Head: Atraumatic ( Not lose control of her bowel or bladder.), Other Neck: Normal Inspection, Supple, Non-Tender, Full Range of Motion. No: Lymphadenopathy (L), Lymphadenopathy (R) Respiratory/Chest: No Respiratory Distress, Lungs Clear, Normal Breath Sounds, No Accessory Muscle Use Cardiovascular: Normal Peripheral Pulses, No Edema, No Gallop (Tachycardia at rest or 2/m), No Murmur, No Rub, Tachycardia GI/Abdominal: Normal Bowel Sounds, Soft, Non-Tender, No Organomegaly, No Abnormal Bruit, No Mass, Pelvis Stable Back Exam: Normal Inspection, Full Range of Motion. No: CVA Tenderness (L), CVA Tenderness (R) Extremities: Normal Inspection, Normal Range of Motion, Non-Tender, No Pedal Edema, Normal Capillary Refill Neurological: Alert, Oriented, CN II-XII Intact, Normal Cognition, No Motor/ Sensory Deficits Psychiatric: Normal Affect, Normal Mood Skin Exam: Intact, Normal Color, No Rash, Cool, Diaphoretic (Very minimally diaphoretic at this time.) Course - Vital Signs Last Recorded V/S: Last Vital Signs Temp 36.8 C 04/23/19 11:42 Pulse 102 H 04/23/19 11:42 Resp 16 04/23/19 11:42 BP 141/94 H 04/23/19 11:42 Pulse Ox 98 04/23/19 11:42 - Orders/Labs/Meds Orders: Active Orders 24 hr Category Date Time Status Blood Glucose Check, Bedside [RC] ONETIME Care 04/23/19 13:02 Active Labs: Laboratory Tests 04/23/19 04/23/19 04/23/19 Range/Units 11:20 11:20 11:20 WBC 14.29 H (3.98-10.04) K/mm3 RBC 5.42 H (3.98-5.22) M/mm3 Hgb 16.6 H (11.2-15.7) gm/dl Hct 47.6 H (34.1-44.9) % MCV 87.8 (79.4-94.8) fl MCH 30.6 (25.6-32.2) pg MCHC 34.9 (32.2-35.5) g/dl RDW Std Deviation 43.2 (36.4-46.3) fL Plt Count 308 (182-369) K/mm3 MPV 10.3 (9.4-12.3) fl Neutrophils % (Manual) 42 (40-60) % Band Neutrophils % 1 (0-10) % Lymphocytes % (Manual) 43 H (20-40) % Atypical Lymphs % 0 % Monocytes % (Manual) 12 H (2-10) % Eosinophils % (Manual) 2 (0.7-5.8) % Basophils % (Manual) 0 L (0.1-1.2) Platelet Estimate Adequate RBC Morph Comment Normal Sodium 142 (136-145) mEq/L Potassium 3.1 L (3.5-5.1) mEq/L Chloride 104 (98-107) mEq/L Carbon Dioxide 22 (21-32) mEq/L Anion Gap 19.1 H (5-15) BUN 11 (7-18) mg/dL Creatinine 0.9 (0.55-1.02) mg/dL Est Cr Clr Drug Dosing TNP Estimated GFR (MDRD) > 60 (>60) mL/min BUN/Creatinine Ratio 12.2 L (14-18) Glucose 93 (74-106) mg/dL POC Glucose (70-105) mg/dL Hemoglobin A1c 6.80 H (4.50-6.20) % Calcium 9.6 (8.5-10.1) mg/dL Total Bilirubin 0.4 (0.2-1.0) mg/dL AST 12 L (15-37) U/L ALT 22 (14-59) U/L Alkaline Phosphatase 69 (46-116) U/L C-Reactive Protein < 0.2 (<1.0) mg/dL Total Protein 8.0 (6.4-8.2) g/dl Albumin 4.2 (3.4-5.0) g/dl Globulin 3.8 gm/dL Albumin/Globulin Ratio 1.1 (1-2) 04/23/19 04/23/19 Range/Units 12:26 13:21 WBC (3.98-10.04) K/mm3 RBC (3.98-5.22) M/mm3 Hgb (11.2-15.7) gm/dl Hct (34.1-44.9) % MCV (79.4-94.8) fl MCH (25.6-32.2) pg MCHC (32.2-35.5) g/dl RDW Std Deviation (36.4-46.3) fL Plt Count (182-369) K/mm3 MPV (9.4-12.3) fl Neutrophils % (Manual) (40-60) % Band Neutrophils % (0-10) % Lymphocytes % (Manual) (20-40) % Atypical Lymphs % % Monocytes % (Manual) (2-10) % Eosinophils % (Manual) (0.7-5.8) % Basophils % (Manual) (0.1-1.2) Platelet Estimate RBC Morph Comment Sodium (136-145) mEq/L Potassium (3.5-5.1) mEq/L Chloride (98-107) mEq/L Carbon Dioxide (21-32) mEq/L Anion Gap (5-15) BUN (7-18) mg/dL Creatinine (0.55-1.02) mg/dL Est Cr Clr Drug Dosing Estimated GFR (MDRD) (>60) mL/min BUN/Creatinine Ratio (14-18) Glucose (74-106) mg/dL POC Glucose 231 H 164 H (70-105) mg/dL Hemoglobin A1c (4.50-6.20) % Calcium (8.5-10.1) mg/dL Total Bilirubin (0.2-1.0) mg/dL AST (15-37) U/L ALT (14-59) U/L Alkaline Phosphatase (46-116) U/L C-Reactive Protein (<1.0) mg/dL Total Protein (6.4-8.2) g/dl Albumin (3.4-5.0) g/dl Globulin gm/dL Albumin/Globulin Ratio (1-2) Meds: Medications Discontinued Medications Generic Name Dose Route Start Last Admin Trade Name Freq PRN Reason Stop Dose Admin Dextrose/Water 50 ml 04/23/19 11:50 04/23/19 12:00 Dextrose 50% In Water IVPUSH 50 ml ASDIRECTED PRN Administration Hypoglycemia Ibuprofen 600 mg 04/23/19 11:51 04/23/19 12:00 Motrin PO 04/23/19 11:52 600 mg ONETIME ONE Administration - Radiology Interpretation Free Text/Narrative:: 43-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 She is insulin-dependent diabetic since age 18. She is currently controlled well with an insulin pump. You need as much is normal for breakfast this morning. She started to feel unwell about 11:00 and did take 5 glucose tablets orally but unfortunately her blood sugar continued to plummet. She apparently had an unresponsive event with possible very mild seizure activity. Rapid response was called and blood sugar on scene was reported to be 56. An IV was started and she was given an amp of D50. But sugar in the ED is up to 239. It would be checked in another half an hour. Her insulin pump has been discontinued. She will have a diabetic dinner tray brought to her. She had had labs drawn in the OB department and therefore will orders a CBC and CMP. - Re-Assessments/Exams Free Text/Narrative Re-Assessment/Exam: 04/23/19 13:01 White count is 14.29 differential pending. Hemoglobin 16.6 with hematocrit of 47.6. Platelet count 308,000. Sodium 142. Potassium slightly low at 3.1. Chloride is 104 with bicarbonate of 22. Anion gap is elevated at 19.1. This is likely from lactic acidosis produced from seizure. You and is 11 with a creatinine of 0.9. Estimated GFR is greater than 60. BUN/creatinine ratio is 12.2. Glucose initially was recorded at 93. Second glucose 15 minutes after an amp of D50 was given is 231. Hemoglobin A1c is 6.80 indicating that she has very tight blood sugar control. Calcium is 9.6 with a total bilirubin of 0.4. AST is 12. Liver function otherwise normal. C-reactive protein is less than 0.2. Total protein is 8.0 with an albumin fraction of 4.2. Patient has headache and diffuse muscle pain indicating that she did probably suffer a seizure. Her blood sugars are stable at present. She is well versed in how to look after herself for hypoglycemic events as she maintains very tight control. She will be discharged to home. Off work the rest of today and tomorrow. Departure - Departure Time of Disposition: 13:26 Disposition: Home, Self-Care 01 Condition: Fair Clinical Impression: Hypoglycemic reaction to insulin, Seizure, Hypoglycemia - Discharge Information *PRESCRIPTION DRUG MONITORING PROGRAM REVIEWED*: Not Applicable *COPY OF PRESCRIPTION DRUG MONITORING REPORT IN PATIENT KATTY: Not Applicable Instructions: Hypoglycemia Referrals: Diana Belle PA-C [Primary Care Provider] - Forms: ED Department Discharge, ED Return to Work/School Form Additional Instructions: Evaluation in the emergency department after you collapsed in the workplace us morning. It appears that the syncope/collapse occurred secondary to severe 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 In type I diabetic since age 18 and have very tight control of your blood sugars with insulin pump usage. Glucose load protein today was 6.8. There is some suggestion by the nursing staff and attending Michael initially that she did suffer a tonic-clonic seizure that lasted about 30 seconds. This would account for the minor injury to the left side of your tongue on examination as well. Also counseled with a headache and the generalized body aches as the muscles will become very sore lactic acid buildup after a seizure. Initial blood sugar assessment was 56 and you therefore given an amp of D 50 dextrose sugar and sugar in the ED initially was 239. Second one was 231 and the last one was 164. You're therefore to begin your insulin treatment with your insulin pump as per your usual and eat accordingly. Home from work the rest of today. Motrin 600 mg every 6 hours as needed for body ache and headache. - My Orders Last 24 Hours: My Active Orders 04/23/19 13:02 Blood Glucose Check, Bedside [RC] ONETIME - Assessment/Plan Last 24 Hours: My Active Orders 04/23/19 13:02 Blood Glucose Check, Bedside [RC] ONETIME
[2019-04-23] MEDS ORDERED: 50% Dextrose in Water 50 ML Syringe IVPUSH PRN (11:50)
[2019-04-23] MEDS ORDERED: Ibuprofen 600 MG Tab PO ONE (11:51)
[2019-04-23 12:20] LABS: HEMOGLOBIN A1C 6.8 % (4.50-6.20)
== END 2019-04-23 13:37 | disposition home or self-care (01) ==
LOC: JD.ED 11:39
DX: E16.0 Drug-induced hypoglycemia without coma (principal); T38.3X5A Adverse effect of insulin and oral hypoglycemic [antidiabetic] drugs, initial encounter; R56.9 Unspecified convulsions; E03.9 Hypothyroidism, unspecified; F41.9 Anxiety disorder, unspecified; F32.9 Major depressive disorder, single episode, unspecified; E10.9 Type 1 diabetes mellitus without complications; Z88.8 Allergy status to other drugs, medicaments and biological substances; Z79.899 Other long term (current) drug therapy
CPT/HCPCS: 36415; 80053; 82962; 83036; 85007; 85027; 86140; 96374; 99284; A9270; J7060

== ENCOUNTER → 2019-07-07 | Day surgery (SDC) | payer BC ==
[~2019-07-07] MED LIST changes: -50% Dextrose in Water 50 ML Syringe ONE; +Lactated Ringers 1,000 ML IV SCH; +Lidocaine 1% 4 ML ONE; +Lidocaine 1%/Sod Bicarbonate in NS 8.4% 1 ML Syringe IDERM PRN; +Midazolam 1 MG/ML 2 ML SDV ONE; +Propofol 200 MG/20 ML SDV ONE; +Sodium Chloride 0.9% 10 ML Syringe FLUSH PRN; +fentaNYL 100 MCG/2 ML SDV ONE
--- NOTE | 2019-07-07 08:12 | PCM.PREANE ---
Preanesthetic Assessment - Anesthesia/Transfusion/Family Hx Anesthesia History: Prior Anesthesia Without Reaction (versed not work) Family History of Anesthesia Reaction: No Transfusion History: No Prior Transfusion(s) Intubation History: Unknown - Review of Systems General: Fatigue Pulmonary: No Symptoms (History of asthma/Smoker: 1-2 ppd times 30 years History of snoring and hypoxia at night), Cough Cardiovascular: No Symptoms (History of HTN) Gastrointestinal: No Symptoms (GERD), Constipation, Nausea, Vomiting Neurological: Headache Other: Reports: Diabetes (Am blood sugar:), Thyroid Problems (History of juan alberto's throiditis), Sinus Problem, Depression, Anxiety - Physical Assessment NPO Status Date: 07/06/19 Vital Signs: HR: BP: Sat: Resp: Temp: ASA Class: 2 Mental Status: Alert & Oriented x3 - Lab Values: All labs reviewed and noted and within acceptable ranges to proceed with scheduled procedure. - Allergies Allergies/Adverse Reactions: Allergies Allergy/AdvReac Type Severity Reaction Status Date / Time gluten Allergy Other Verified 07/06/19 15:29 wheat Allergy Other Verified 07/06/19 15:29 lisinopril AdvReac Cough Verified 07/06/19 15:29 - Anesthesia Plan Pre-Op Medication Ordered: None - Acknowledgements Anesthesia Type Planned: MAC Pt an Appropriate Candidate for the Planned Anesthesia: Yes Alternatives and Risks of Anesthesia Discussed w Pt/Guardian: Yes Pt/Guardian Understands and Agrees with Anesthesia Plan: Yes PreAnesthesia Questionnaire HEENT History: Reports: Allergic Rhinitis, Impaired Vision, Otitis Media Other HEENT History: wears eyeglasses, ear pain, eustachian tube dysfuction, hearing loss, middle ear effusion Cardiovascular History: Reports: High Cholesterol, Hypertension Respiratory History: Reports: Asthma, Other (See Below) Other Respiratory History: cough, hypoxia, dypsnea Gastrointestinal History: Reports: Celiac Disease, Chronic Constipation, GERD, Hemorrhoids, Other (See Below) Other Gastrointestinal History: nausea, vomiting, gastric ulcer Genitourinary History: Reports: STD, Urinary Incontinence Other Genitourinary History: frequency 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 SEATER History: Reports: Endometrial Ablation, , Other (See Below) Other OB/BYN History: genital warts, right ovarian cyst, pelvic pain, breast cyst, fibrocystic breast, hot flashes, ovarian cyst, vagnial discomfort, vaginal odor Other 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: left foot fracture, adductor tendinitis, left hip greater trochanteric bursitis, joint pain, heel pain, right elbow lateral epicondylitis, plantar fasciitis Neurological History: Reports: None, Headaches, Chronic, Migraines Psychiatric History: Reports: Anxiety, Depression, Other (See Below) Other Psychiatric History: insomnia, fatigue Endocrine/Metabolic History: Reports: Diabetes, Type I, Hypothyroidism, Vitamin D Deficiency Other Endocrine/Metabolic History: hashimotos thyroiditis Hematologic History: Reports: Anemia Immunologic History: Reports: None Oncologic (Cancer) History: Reports: None Dermatologic History: Reports: None Other Dermatologic History: change in nevus, cold sore, unwanted hair - Past Surgical History Head Surgeries/Procedures: Reports: None HEENT Surgical History: Reports: Oral Surgery Cardiovascular Surgical History: Reports: None Respiratory Surgical History: Reports: None GI Surgical History: Reports: Cholecystectomy, Colonoscopy, EGD Female Surgical History: Reports: Endometrial Ablation, Hysterectomy, Tubal Ligation Male Surgical History: Reports: None Endocrine Surgical History: Reports: None Neurological Surgical History: Reports: None Musculoskeletal Surgical History: Reports: None Oncologic Surgical History: Reports: None Dermatological Surgical History: Reports: None - SUBSTANCE USE Smoking Status *Q: Former Smoker Recreational Drug Use History: No - HOME MEDS Home Medications: Home Meds Insulin Aspart [NovoLOG] 0 unit SQ ASDIRECTED 10/10/14 [History] Glucagon,Human Recombinant [Glucagon Emergency Kit] 1 dose IM ASDIRECTED PRN [History] Albuterol Sulfate [Albuterol Sulfate Hfa] 1 - 2 puff INH Q4H PRN 07/06/19 [ History] Aspirin [Halfprin] 81 mg PO DAILY 07/06/19 [History] Cholecalciferol (Vitamin D3) [Vitamin D3] 5,000 unit PO DAILY 07/06/19 [History] Diclofenac Sodium [Voltaren 1% Gel] 1 dose TOP QID PRN 07/06/19 [History] Empagliflozin [Jardiance] 10 mg PO QAM 07/06/19 [History] FLUoxetine HCl [Prozac] 20 mg PO DAILY 07/06/19 [History] Ibuprofen 800 mg PO TID PRN 07/06/19 [History] Levothyroxine Sodium [Unithroid] 125 mcg PO DAILY 07/06/19 [History] Ondansetron [Zofran ODT] 4 mg PO TID PRN 07/06/19 [History] Selenium 200 mcg PO DAILY 07/06/19 [History] - CURRENT (IN HOUSE) MEDS Current Meds: Current Medications Lactated Ringer's (Ringers, Lactated) 1,000 mls @ 125 mls/hr IV ASDIRECTED CORNELIO Stop: 07/07/19 23:00 Lidocaine/Sodium Bicarbonate (Buffered Lidocaine 1% In Ns 8.4%) 0.25 ml IDERM ONETIME PRN PRN Reason: Prior to IV Start Stop: 07/07/19 18:00 Sodium Chloride (Saline Flush) 10 ml FLUSH ASDIRECTED PRN PRN Reason: Keep Vein Open Stop: 07/07/19 18:00
--- NOTE | 2019-07-07 08:54 | PCM.PREANE ---
Preanesthetic Assessment - Procedure Proposed Procedure: colonoscopy - Anesthesia/Transfusion/Family Hx Anesthesia History: Prior Anesthesia Without Reaction (versed not work) Family History of Anesthesia Reaction: No Transfusion History: No Prior Transfusion(s) Intubation History: Unknown - Review of Systems General: No Symptoms Pulmonary: Cough Cardiovascular: No Symptoms Gastrointestinal: Abdominal Pain (cramping), Nausea Neurological: Seizure (diabetic ) Other: Reports: Diabetes (Am blood sugar:), Thyroid Problems (History of juan alberto's throiditis), Sinus Problem, Depression, Anxiety - Physical Assessment NPO Status Date: 07/07/19 NPO Status Time: 04:00 Vital Signs: Last Vital Signs Temp 36.7 C 07/07/19 08:15 Pulse 91 07/07/19 08:15 Resp 16 07/07/19 08:15 BP 137/85 07/07/19 08:15 Pulse Ox 98 07/07/19 08:15 Height: 1.68 m Weight: 95.254 kg ASA Class: 2 Mental Status: Alert & Oriented x3 Airway Class: Mallampati = 2 Dentition: Reports: Normal Dentition, Caries Thyro-Mental Finger Breadths: 2 Mouth Opening Finger Breadths: 2 ROM/Head Extension: Full Lungs: Clear to Auscultation, Normal Respiratory Effort Cardiovascular: Regular Rate, Regular Rhythm - Allergies Allergies/Adverse Reactions: Allergies Allergy/AdvReac Type Severity Reaction Status Date / Time gluten Allergy Other Verified 07/06/19 15:29 wheat Allergy Other Verified 07/06/19 15:29 lisinopril AdvReac Cough Verified 07/06/19 15:29 - Blood Blood Available: No Product(s) Available: None - Anesthesia Plan Pre-Op Medication Ordered: None - Acknowledgements Anesthesia Type Planned: MAC Pt an Appropriate Candidate for the Planned Anesthesia: Yes Alternatives and Risks of Anesthesia Discussed w Pt/Guardian: Yes Pt/Guardian Understands and Agrees with Anesthesia Plan: Yes PreAnesthesia Questionnaire HEENT History: Reports: Allergic Rhinitis, Impaired Vision, Otitis Media Other HEENT History: wears eyeglasses, ear pain, eustachian tube dysfuction, hearing loss, middle ear effusion Cardiovascular History: Reports: High Cholesterol, Hypertension Respiratory History: Reports: Asthma, Other (See Below) Other Respiratory History: cough, hypoxia, dypsnea Gastrointestinal History: Reports: Celiac Disease, Chronic Constipation, GERD, Hemorrhoids, Other (See Below) Other Gastrointestinal History: nausea, vomiting, gastric ulcer Genitourinary History: Reports: STD, Urinary Incontinence Other Genitourinary History: frequency 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: Reports: Endometrial Ablation, , Other (See Below) Other OB/BYN History: genital warts, right ovarian cyst, pelvic pain, breast cyst, fibrocystic breast, hot flashes, ovarian cyst, vagnial discomfort, vaginal odor Other 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: left foot fracture, adductor tendinitis, left hip greater trochanteric bursitis, joint pain, heel pain, right elbow lateral epicondylitis, plantar fasciitis Neurological History: Reports: None, Headaches, Chronic, Migraines Psychiatric History: Reports: Anxiety, Depression, Other (See Below) Other Psychiatric History: insomnia, fatigue Endocrine/Metabolic History: Reports: Diabetes, Type I, Hypothyroidism, Vitamin D Deficiency Other Endocrine/Metabolic History: hashimotos thyroiditis Hematologic History: Reports: Anemia Immunologic History: Reports: None Oncologic (Cancer) History: Reports: None Dermatologic History: Reports: None Other Dermatologic History: change in nevus, cold sore, unwanted hair - Past Surgical History Head Surgeries/Procedures: Reports: None HEENT Surgical History: Reports: Oral Surgery Cardiovascular Surgical History: Reports: None Respiratory Surgical History: Reports: None GI Surgical History: Reports: Cholecystectomy, Colonoscopy, EGD Female Surgical History: Reports: Endometrial Ablation, Hysterectomy, Tubal Ligation Male Surgical History: Reports: None Endocrine Surgical History: Reports: None Neurological Surgical History: Reports: None Musculoskeletal Surgical History: Reports: None Oncologic Surgical History: Reports: None Dermatological Surgical History: Reports: None - SUBSTANCE USE Smoking Status *Q: Former Smoker Tobacco Use Within Last Twelve Months: No Second Hand Smoke Exposure: No Days Per Week of Alcohol Use: 0 Number of Drinks Per Day: 0 Total Drinks Per Week: 0 Recreational Drug Use History: No - HOME MEDS Home Medications: Home Meds Insulin Aspart [NovoLOG] 0 unit SQ ASDIRECTED 10/10/14 [History] Glucagon,Human Recombinant [Glucagon Emergency Kit] 1 dose IM ASDIRECTED PRN [History] Albuterol Sulfate [Albuterol Sulfate Hfa] 1 - 2 puff INH Q4H PRN 07/06/19 [ History] Aspirin [Halfprin] 81 mg PO DAILY 07/06/19 [History] Cholecalciferol (Vitamin D3) [Vitamin D3] 5,000 unit PO DAILY 07/06/19 [History] Diclofenac Sodium [Voltaren 1% Gel] 1 dose TOP QID PRN 07/06/19 [History] Empagliflozin [Jardiance] 10 mg PO QAM 07/06/19 [History] FLUoxetine HCl [Prozac] 20 mg PO DAILY 07/06/19 [History] Ibuprofen 800 mg PO TID PRN 07/06/19 [History] Levothyroxine Sodium [Unithroid] 125 mcg PO DAILY 07/06/19 [History] Ondansetron [Zofran ODT] 4 mg PO TID PRN 07/06/19 [History] Selenium 200 mcg PO DAILY 07/06/19 [History] - CURRENT (IN HOUSE) MEDS Current Meds: Current Medications Lactated Ringer's (Ringers, Lactated) 1,000 mls @ 125 mls/hr IV ASDIRECTED CORNELIO Stop: 07/07/19 23:00 Last Admin: 07/07/19 08:33 Dose: 125 mls/hr Lidocaine/Sodium Bicarbonate (Buffered Lidocaine 1% In Ns 8.4%) 0.25 ml IDERM ONETIME PRN PRN Reason: Prior to IV Start Stop: 07/07/19 18:00 Last Admin: 07/07/19 08:33 Dose: 0.25 ml Sodium Chloride (Saline Flush) 10 ml FLUSH ASDIRECTED PRN PRN Reason: Keep Vein Open Stop: 07/07/19 18:00
--- NOTE | 2019-07-07 10:00 | PCM.PRNOTE ---
- Free Text/Narrative Note: Date: 07/07/2019 Endoscopist: Paras Kelly MD Procedure: colonoscopy screening Findings: minor rectal prolapse. small sessile polyp near hepatic flexure; biopsied with forceps and base cauterized. Prep was very good, ileocecal valve was visualized. Detailed Report: The patient was taken to the GI suite and placed in left lateral decubitus position. Monitored sedation was initiated. Timeout was performed. Visual inspection of the anus revealed minor rectal prolapse, digital rectal exam was unremarkable. The colonoscope was advanced all the way to the ileocecal valve. Prep was very good. The cecum had a mottled, mild inflammatory appearance and so this was biopsied. A subcentimeter sessile polyp was identified near the hepatic flexure, this was biopsied with cold forceps. The remainder of the polyp was cauterized. The rest of the mucosal surfaces were inspected carefully as the colonoscope was retracted. No additional abnormalities were noted. No diverticular disease or significant internal hemorrhoids. The patient tolerated the procedure well. Paras Kelly MD General Surgery
--- NOTE | 2019-07-07 10:01 | PCM48HPAN ---
Post Anesthesia Note - EVALUATION WITHIN 48HRS OF ANESTHETIC Vital Signs in Normal Range: Yes Patient Participated in Evaluation: Yes Respiratory Function Stable: Yes Airway Patent: Yes Cardiovascular Function Stable: Yes Hydration Status Stable: Yes Pain Control Satisfactory: Yes Nausea and Vomiting Control Satisfactory: Yes Mental Status Recovered: Yes Vital Signs: Last Vital Signs Temp 36.7 C 07/07/19 08:15 Pulse 91 07/07/19 08:15 Resp 16 07/07/19 08:15 BP 137/85 07/07/19 08:15 Pulse Ox 98 07/07/19 08:15 - COMMENTS/OBSERVATIONS Free Text/Narrative:: no anesthesia complications noted
[2019-07-07 11:26] VITALS: BP 129/75; PULSE 83
== END | disposition home or self-care (01) ==
LOC: JD.SDS 08:12
PROVIDERS: ATTEND Surgery
DX: Z12.11 Encounter for screening for malignant neoplasm of colon (principal); K62.3 Rectal prolapse; K63.89 Other specified diseases of intestine; J45.909 Unspecified asthma, uncomplicated; F32.9 Major depressive disorder, single episode, unspecified; E06.3 Autoimmune thyroiditis; H91.90 Unspecified hearing loss, unspecified ear; F41.9 Anxiety disorder, unspecified; K21.9 Gastro-esophageal reflux disease without esophagitis; E03.9 Hypothyroidism, unspecified; E10.9 Type 1 diabetes mellitus without complications; E55.9 Vitamin D deficiency, unspecified; I10 Essential (primary) hypertension; E78.00 Pure hypercholesterolemia, unspecified; G43.909 Migraine, unspecified, not intractable, without status migrainosus; Z87.19 Personal history of other diseases of the digestive system; Z87.891 Personal history of nicotine dependence; Z80.0 Family history of malignant neoplasm of digestive organs; Z91.018 Allergy to other foods; Z88.8 Allergy status to other drugs, medicaments and biological substances; Z79.890 Hormone replacement therapy; Z79.899 Other long term (current) drug therapy
CPT/HCPCS: 45380; J2001; J2250; J2704; J3010; J7120

== ENCOUNTER 2019-10-15 14:38 | Emergency (ER) | payer BC ==
[2019-10-15 14:58] VITALS: BP 158/100; PULSE 100
[2019-10-15] MEDS ORDERED: Ondansetron 4 MG/2 ML SDV IVPUSH ONE (16:30)
[2019-10-15] MEDS ORDERED: HYDROmorphone 0.5 MG/0.5 ML Syringe IVPUSH ONE (16:30)
--- NOTE | 2019-10-15 16:31 | EDM.PDOC ---
ED HPI GENERAL MEDICAL PROBLEM - General Chief Complaint: Abdominal Pain Stated Complaint: ABDOMINAL PAIN/HEADACHE/NAUSEA/FATIGUE Time Seen by Provider: 10/15/19 16:07 Source of Information: Reports: Patient, RN Notes Reviewed History Limitations: Reports: No Limitations - History of Present Illness INITIAL COMMENTS - FREE TEXT/NARRATIVE: Patient is a 44-year-old female who presents to the ED for evaluation of a couple different complaints. Patient notes she has been having ongoing symptoms for quite some time. She has been having some outpatient laboratory evaluation for certain autoimmune disorders, and also was found to have a low cortisol level as well. Patient states she is having ongoing issues where she cannot remember names, and things like that. Patient states she is also having some generalized confusion, and she is states it is very frustrating as she is just forgetting common things. She is complaining some upper abdominal pain, that is shooting in nature from mid abdomen to left upper abdomen. Has a frontal headache, Generalized muscle aches, weakness, lethargy and fatigue as well. This has all worsened in the last 2 weeks. Patient had a brain MRI done at noon today for a pituitary tumor and this was negative. Patient states she feels very unsteady when she is up and walking. Patient did not take any sort of [id number] medications for headache or pain, but did take 1 dose of Zofran prior to the MRI today. She states she is also not eaten much. Patient notes that the fatigue seems to worsen throughout the day, and she notes that it is much worse after 3 PM. Abdomen Pain Score (Numeric/FACES): 4 - Related Data Allergies Allergy/AdvReac Type Severity Reaction Status Date / Time gluten Allergy Other Verified 10/15/19 14:58 wheat Allergy Other Verified 10/15/19 14:58 lisinopril AdvReac Cough Verified 10/15/19 14:58 Home Meds: Home Meds Insulin Aspart [NovoLOG] 0 unit SQ ASDIRECTED 10/10/14 [History] Glucagon,Human Recombinant [Glucagon Emergency Kit] 1 dose IM ASDIRECTED PRN [History] Albuterol Sulfate [Albuterol Sulfate Hfa] 1 - 2 puff INH Q4H PRN 07/06/19 [ History] Aspirin [Halfprin] 81 mg PO DAILY 07/06/19 [History] Cholecalciferol (Vitamin D3) [Vitamin D3] 5,000 unit PO DAILY 07/06/19 [History] Diclofenac Sodium [Voltaren 1% Gel] 1 dose TOP QID PRN 07/06/19 [History] FLUoxetine HCl [Prozac] 20 mg PO DAILY 07/06/19 [History] Ibuprofen 800 mg PO TID PRN 07/06/19 [History] Levothyroxine Sodium [Unithroid] 137 mcg PO DAILY 07/06/19 [History] Ondansetron [Zofran ODT] 4 mg PO TID PRN 07/06/19 [History] Phentermine HCl 30 mg PO DAILY 10/15/19 [History] Past Medical History HEENT History: Reports: Allergic Rhinitis, Impaired Vision Other HEENT History: wears eyeglasses Cardiovascular History: Reports: High Cholesterol Respiratory History: Reports: Asthma Other Respiratory History: cough, hypoxia, dypsnea Gastrointestinal History: Reports: GERD Other Gastrointestinal History: nausea, vomiting, gastric ulcer Genitourinary History: Reports: STD, Urinary Incontinence Other Genitourinary History: frequency 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: Endometrial Ablation, , Other (See Below) Other CHIEF [employer]PORT GUIDE History: genital warts, right ovarian cyst, pelvic pain 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: Reports: Fracture Other 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: left foot fracture, adductor tendinitis, left hip greater trochanteric bursitis, joint pain Psychiatric History: Reports: Anxiety, Depression, Other (See Below) Other Psychiatric History: insomnia Endocrine/Metabolic History: Reports: Diabetes, Type I, Hypothyroidism, Vitamin D Deficiency Other Endocrine/Metabolic History: hashimotos thyroiditis Dermatologic History: Reports: Other (See Below) Other Dermatologic History: change in nevus, cold sore, unwanted hair - Past Surgical History GI Surgical History: Reports: Cholecystectomy Female Surgical History: Reports: Endometrial Ablation, Hysterectomy, Tubal Ligation Social & Family History - Tobacco Use Smoking Status *Q: Never Smoker - Caffeine Use Caffeine Use: Reports: Coffee - Recreational Drug Use Recreational Drug Use: No - Living Situation & Occupation Living situation: Reports: Single Occupation: Unemployed ED ROS GENERAL - Review of Systems Review Of Systems: See Below Constitutional: Reports: Malaise, Weakness, Fatigue. Denies: Fever, Chills Cardiovascular: Denies: Chest Pain GI/Abdominal: Reports: Abdominal Pain (epigastric w radiation to LUQ) Neurological: Reports: Confusion (having issues with remote memory), Difficulty Walking (feels unsteady when walking), Weakness. Denies: Trouble Speaking Psychiatric: Reports: Anxiety, Confusion (having remote memory loss, forgetful of names, etc.). Denies: Hallucinations ED EXAM, GI/ABD - Physical Exam Exam: See Below Exam Limited By: No Limitations General Appearance: Alert, WD/WN, No Apparent Distress, Anxious (pt is tearful at time of exam) Eyes: Bilateral: Normal Appearance, EOMI Ears: Normal External Exam Nose: Normal Inspection Throat/Mouth: Normal Inspection, Normal Lips, Normal Teeth, Normal Gums, Normal Oropharynx, Normal Voice, No Airway Compromise Head: Atraumatic, Normocephalic Neck: Normal Inspection, Supple, Non-Tender, Full Range of Motion Respiratory/Chest: No Respiratory Distress, Lungs Clear, Normal Breath Sounds, No Accessory Muscle Use, Chest Non-Tender Cardiovascular: Normal Peripheral Pulses, Regular Rate, Rhythm, No Edema, No Murmur GI/Abdominal Exam: Normal Bowel Sounds, Soft, No Distention, No Mass, Tender ( epigastrium w radiation to LUQ) Extremities: Normal Inspection, Normal Capillary Refill Neurological: Alert, Oriented, CN II-XII Intact (grossly), Normal Cognition, No Motor/Sensory Deficits Psychiatric: Normal Affect, Normal Mood, Anxious (pt is tearful at exam, at times she has a hard time saying what she means, but does answer questions appropriately), Tearful Skin Exam: Warm, Dry, Intact, Normal Color, No Rash Course - Vital Signs Last Recorded V/S: Last Vital Signs Temp 98.2 F 10/15/19 14:53 Pulse 100 10/15/19 14:53 Resp 13 10/15/19 14:53 BP 158/100 H 10/15/19 14:53 Pulse Ox 100 10/15/19 14:53 - Orders/Labs/Meds Orders: Active Orders 24 hr Category Date Time Status Peripheral IV Care [RC] . DIRECTED Care 10/15/19 16:30 Active Sodium Chloride 0.9% [Normal Saline] 1,000 ml Med 10/15/19 19:15 Ordered IV ONETIME Sodium Chloride 0.9% [Saline Flush] Med 10/15/19 16:30 Active 10 ml FLUSH ASDIRECTED PRN Peripheral IV Insertion Adult [OM.PC] Stat Oth 10/15/19 16:30 Ordered Medication Orders Sodium Chloride (Normal Saline) 1,000 mls @ 999 mls/hr IV ONETIME ONE Stop: 10/15/19 20:15 Sodium Chloride (Saline Flush) 10 ml FLUSH ASDIRECTED PRN PRN Reason: Keep Vein Open Last Admin: 10/15/19 19:05 Dose: 10 ml Admin: 10/15/19 17:18 Dose: 10 ml Labs: Laboratory Tests 10/15/19 10/15/19 Range/Units 17:00 17:32 WBC 8.51 (3.98-10.04) K/mm3 RBC 4.84 (3.98-5.22) M/mm3 Hgb 14.9 D (11.2-15.7) gm/dl Hct 43.3 (34.1-44.9) % MCV 89.5 (79.4-94.8) fl MCH 30.8 (25.6-32.2) pg MCHC 34.4 (32.2-35.5) g/dl RDW Std Deviation 44.0 (36.4-46.3) fL Plt Count 235 (182-369) K/mm3 MPV 10.2 (9.4-12.3) fl Neutrophils % (Manual) 59 (40-60) % Band Neutrophils % 0 (0-10) % Lymphocytes % (Manual) 37 (20-40) % Atypical Lymphs % 1 % Monocytes % (Manual) 1 L (2-10) % Eosinophils % (Manual) 2 (0.7-5.8) % Basophils % (Manual) 0 L (0.1-1.2) Platelet Estimate Adequate RBC Morph Comment Normal Sodium 140 (136-145) mEq/L Potassium 4.1 (3.5-5.1) mEq/L Chloride 105 (98-107) mEq/L Carbon Dioxide 23 (21-32) mEq/L Anion Gap 16.1 H (5-15) BUN 8 (7-18) mg/dL Creatinine 0.6 (0.55-1.02) mg/dL Est Cr Clr Drug Dosing 108.79 mL/min Estimated GFR (MDRD) > 60 (>60) mL/min BUN/Creatinine Ratio 13.3 L (14-18) Glucose 101 (74-106) mg/dL Calcium 9.2 (8.5-10.1) mg/dL Total Bilirubin 0.5 (0.2-1.0) mg/dL AST 24 (15-37) U/L ALT 28 (14-59) U/L Alkaline Phosphatase 57 (46-116) U/L Total Protein 7.3 (6.4-8.2) g/dl Albumin 3.9 (3.4-5.0) g/dl Globulin 3.4 gm/dL Albumin/Globulin Ratio 1.2 (1-2) Lipase 65 L (73-393) U/L Meds: Medications Generic Name Dose Route Start Last Admin Trade Name Freq PRN Reason Stop Dose Admin Sodium Chloride 1,000 mls @ 999 mls/hr 10/15/19 19:15 Normal Saline IV 10/15/19 20:15 ONETIME ONE Sodium Chloride 10 ml 10/15/19 16:30 10/15/19 19:05 Saline Flush FLUSH 10 ml ASDIRECTED PRN Administration Keep Vein Open Discontinued Medications Generic Name Dose Route Start Last Admin Trade Name Freq PRN Reason Stop Dose Admin Diatrizoate Meglum/Diatrizoate Sod 60 ml 10/15/19 17:33 10/15/19 19:05 Gastrografin 37% PO 10/15/19 17:34 60 ml ONETIME ONE Administration Hydromorphone HCl 0.5 mg 10/15/19 16:30 10/15/19 17:18 Dilaudid IVPUSH 10/15/19 16:31 0.5 mg ONETIME ONE Administration Sodium Chloride 1,000 mls @ 999 mls/hr 10/15/19 16:32 10/15/19 17:18 Normal Saline IV 10/15/19 17:32 999 mls/hr ONETIME ONE Administration Iopamidol 100 ml 10/15/19 17:33 10/15/19 19:05 Isovue-300 (61%) IVPUSH 10/15/19 17:34 100 ml ONETIME ONE Administration Ondansetron HCl 4 mg 10/15/19 16:30 10/15/19 17:18 Zofran IVPUSH 10/15/19 16:31 4 mg ONETIME ONE Administration - Re-Assessments/Exams Free Text/Narrative Re-Assessment/Exam: 10/15/19 17:16 Patient presents to the ED for a couple different complaints. I will do some basic laboratory testing to see if there is any metabolic abnormality. This will also include lipase, and I will order an abdomen pelvis CT with contrast for further evaluation of her kidneys/adrenals. She will be given half milligram of Dilaudid, 4 mg Zofran and 1 bag of normal saline at today's visit, possibly 2 as she has already had MRI with contrast. 10/15/19 19:43 Patient did have some labs drawn, and a CT done, CT demonstrates no focal abnormalities. Kidneys and adrenals look to be within normal limits. There is a little bit increased stool throughout the colon, mostly in the transverse area which is in the area of her pain. White blood cell count is normal, metabolic panel is normal, lipase is normal. There is no obvious sign of anything causing any other issues. I will reassess the patient see how she is feeling, there was another bag of fluids ordered, as this is the second imaging process she has had with contrast. Departure - Departure Time of Disposition: 19:50 Disposition: Home, Self-Care 01 Condition: Fair Clinical Impression: Upper abdominal pain, Memory changes - Discharge Information *PRESCRIPTION DRUG MONITORING PROGRAM REVIEWED*: No *COPY OF PRESCRIPTION DRUG MONITORING REPORT IN PATIENT KATTY: No Instructions: Abdominal Pain, Adult, [id number] Referrals: Diana Belle PA-C [Primary Care Provider] - Forms: ED Department Discharge, ED Return to Work/School Form Additional Instructions: You were evaluated in the ER today regarding your abdominal pain/fatigue/memory issues. Laboratory evaluation was within normal limits, you did have an abdomen pelvis CT and this also was within normal limits. You did receive 1 bag of fluids in the ER for rehydration purposes, this did seem to help you feel a little bit better. Unfortunately we do not have a good reason as to why you are having some memory or cognitive issues. Recommend you go forward with the dexamethasone suppression test, and follow-up with your regular provider tomorrow on how to go about this. You may need a further referral for endocrinology or otherwise in [place] or at a different facility. It seems that we have may be exhausted our limitations at this facility. The brain MRI you had done today also showed no pituitary tumor or other lesions , which is reassuring. Please take your Zofran as previously directed, try to increase your oral fluid intake and stay well-hydrated. The contrast you received today, will help provide more of a laxative effect, and you should have a few good bowel movements, this should help with a little bit of your pain as there was quite a bit of stool noted on your CT. Please return to the ER at any time if your symptoms change or worsen. Sepsis Event Note - Evaluation Sepsis Screening Result: No Definite Risk - Focused Exam Vital Signs: Vital Signs Temp Pulse Resp BP Pulse Ox 10/15/19 14:53 98.2 F 100 13 158/100 H 100 Date Exam was Performed: 10/15/19 Time Exam was Performed: 19:50 - My Orders Last 24 Hours: My Active Orders 10/15/19 16:30 Peripheral IV Care [RC] . DIRECTED Sodium Chloride 0.9% [Saline Flush] 10 ml FLUSH ASDIRECTED PRN Peripheral IV Insertion Adult [OM.PC] Stat 10/15/19 19:15 Sodium Chloride 0.9% [Normal Saline] 1,000 ml IV ONETIME - Assessment/Plan Last 24 Hours: My Active Orders 10/15/19 16:30 Peripheral IV Care [RC] . DIRECTED Sodium Chloride 0.9% [Saline Flush] 10 ml FLUSH ASDIRECTED PRN Peripheral IV Insertion Adult [OM.PC] Stat 10/15/19 19:15 Sodium Chloride 0.9% [Normal Saline] 1,000 ml IV ONETIME
[2019-10-15] MEDS ORDERED: Sodium Chloride 0.9% 1,000 ML IV ONE ×2 (16:32→19:15)
[2019-10-15] MEDS: Sodium Chloride 0.9% 10 ML Syringe FLUSH PRN ×2 (17:18→19:05)
[2019-10-15] MEDS ORDERED: Iopamidol 612 MG/ML 100 ML Bottle IVPUSH ONE (17:33)
[2019-10-15] MEDS ORDERED: Diatrizoate Meglumine/Diatrizoate Sodium 37% 120 ML Bottle PO ONE (17:33)
--- NOTE | 2019-10-15 19:33 | CT ---
CT abdomen and pelvis Technique: Multiple axial sections were obtained from slightly below the dome of the diaphragm inferiorly through the pubic symphysis. Intravenous and oral contrast was utilized. Delayed images were obtained through the kidneys and adrenal glands as well as through remaining portions of the abdomen. Findings: Visualized lung bases show nothing acute. Visualized liver shows no focal abnormality. Spleen appears within normal limits. Adrenal glands show no nodule. Pancreas is within normal limits. Surgical clips are seen from prior cholecystectomy. Kidneys show symmetric contrast enhancement. No cyst or solid abnormality is seen within the kidneys. Delayed images shows contrast within the distal ureters and bladder. No filling defects are seen within the collecting system of the kidneys. Aorta shows no aneurysm. No retroperitoneal adenopathy or mesenteric abnormalities are seen. Appendix is seen which is normal. No pelvic mass or adenopathy is seen. No free fluid or inflammatory change is seen. Bone window settings were reviewed which appear within normal limits for the patient's age. Impression: 1. Nothing acute is appreciated on CT study of the abdomen and pelvis. 2. Normal findings as described above. Diagnostic code #1 This report was dictated in MDT
== END 2019-10-15 19:40 | disposition home or self-care (01) ==
LOC: JD.ED 14:38
DX: R10.12 Left upper quadrant pain (principal); R41.82 Altered mental status, unspecified; E78.00 Pure hypercholesterolemia, unspecified; J45.909 Unspecified asthma, uncomplicated; K21.9 Gastro-esophageal reflux disease without esophagitis; F41.9 Anxiety disorder, unspecified; F32.9 Major depressive disorder, single episode, unspecified; E10.9 Type 1 diabetes mellitus without complications; E03.9 Hypothyroidism, unspecified; Z88.8 Allergy status to other drugs, medicaments and biological substances; Z91.018 Allergy to other foods; Z79.82 Long term (current) use of aspirin; Z79.899 Other long term (current) drug therapy
CPT/HCPCS: 36415; 74177; 80053; 83690; 85007; 85027; 96361; 96374; 96375; 99285; J1170; J2405; J7030; Q9963; Q9967; 99284

== ENCOUNTER 2019-11-09 18:20 | Emergency (ER) | payer BC ==
[2019-11-09] MEDS ORDERED: Lidocaine 1% 10 ML MDV INJECT ONE (18:47)
--- NOTE | 2019-11-09 18:56 | EDM.PDOC ---
ED HPI GENERAL MEDICAL PROBLEM - General Chief Complaint: Laceration Stated Complaint: LEFT POINTER FINGER LACERATION Time Seen by Provider: 11/09/19 18:26 Source of Information: Reports: Patient, RN Notes Reviewed History Limitations: Reports: No Limitations - History of Present Illness INITIAL COMMENTS - FREE TEXT/NARRATIVE: Patient is a 44-year-old female who presents to the ED for the evaluation of a laceration. The patient states that she was at home, trying to cut a wooden dowel with a sharp kitchen knife, when it slipped and ended up cutting her left index finger. This resulted in a 2 cm laceration to the posterior aspect of the PIP knuckle. This is linear in fashion, patient is still able to flex/ extend the finger. She is not complaining of any numbness or tingling distal to the injury. Patient did clean the area prior to arrival, and it was cleansed again by triage nurse. There is no active bleeding noted at this time. Patient is up-to-date with her tetanus vaccine. Left Finger-Index Pain Score (Numeric/FACES): 1 - Related Data Allergies Allergy/AdvReac Type Severity Reaction Status Date / Time gluten Allergy Other Verified 11/09/19 18:38 wheat Allergy Other Verified 11/09/19 18:38 lisinopril AdvReac Cough Verified 11/09/19 18:38 Home Meds: Home Meds Albuterol Sulfate [Proair Respiclick] 1 - 2 puff IH Q4H PRN 10/26/19 [History] Aspirin [Adult Low Dose Aspirin EC] 81 mg PO DAILY 10/26/19 [History] Cholecalciferol (Vitamin D3) [Vitamin D3] 5,000 unit PO DAILY 10/26/19 [History] Diclofenac Sodium [Voltaren 1% Gel] 1 applic TOP QID PRN 10/26/19 [History] Glucagon [Gvoke Syringe] 1 mg SQ ASDIRECTED PRN 10/26/19 [History] Ibuprofen 200 - 800 mg PO ASDIRECTED PRN 10/26/19 [History] Insulin Lispro [Humalog] 0 unit SQ ASDIRECTED 10/26/19 [History] Levothyroxine Sodium [Synthroid] 137 mcg PO DAILY 10/26/19 [History] Nystatin/Triamcin [Nystatin-Triamcinolone Ointm] 1 applic TP TID 10/26/19 [ History] Ondansetron [Ondansetron Odt] 4 mg PO TID 10/26/19 [History] Baclofen 10 mg PO BID 11/09/19 [History] DULoxetine HCl [Duloxetine HCl] 40 mg PO DAILY 11/09/19 [History] Imipramine HCl 50 mg PO DAILY 11/09/19 [History] Past Medical History HEENT History: Reports: Allergic Rhinitis, Impaired Vision Other HEENT History: wears eyeglasses Cardiovascular History: Reports: High Cholesterol Respiratory History: Reports: Asthma Other Respiratory History: cough, hypoxia, dypsnea Gastrointestinal History: Reports: GERD Other Gastrointestinal History: nausea, vomiting, gastric ulcer Genitourinary History: Reports: STD, Urinary Incontinence Other Genitourinary History: frequency [employer] History: Reports: Endometrial Ablation, , Other (See Below) Other [employer] History: genital warts, right ovarian cyst, pelvic pain 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: Reports: Fracture Other 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: left foot fracture, adductor tendinitis, left hip greater trochanteric bursitis, joint pain Neurological History: Reports: Other (See Below) Other Neuro History: Fibromyalgia Psychiatric History: Reports: Anxiety, Depression, Other (See Below) Other Psychiatric History: insomnia Endocrine/Metabolic History: Reports: Diabetes, Type I, Hypothyroidism, Vitamin D Deficiency Other Endocrine/Metabolic History: hashimotos thyroiditis Dermatologic History: Reports: Other (See Below) Other Dermatologic History: change in nevus, cold sore, unwanted hair - Past Surgical History GI Surgical History: Reports: Cholecystectomy Female Surgical History: Reports: Endometrial Ablation, Hysterectomy, Tubal Ligation Social & Family History - Tobacco Use Smoking Status *Q: Never Smoker - Caffeine Use Caffeine Use: Reports: Coffee - Recreational Drug Use Recreational Drug Use: No - Living Situation & Occupation Living situation: Reports: Single Occupation: Unemployed ED ROS GENERAL - Review of Systems Review Of Systems: Comprehensive ROS is negative, except as noted in HPI. ED EXAM, SKIN/RASH Exam: See Below Exam Limited By: No Limitations General Appearance: Alert, WD/WN, No Apparent Distress Respiratory/Chest: No Respiratory Distress, Lungs Clear, Normal Breath Sounds, No Accessory Muscle Use, Chest Non-Tender Cardiovascular: Normal Peripheral Pulses, Regular Rate, Rhythm, No Murmur Peripheral Pulses: 3+: Radial (L), Radial (R) Extremities: Normal Inspection, Normal Range of Motion, Normal Capillary Refill Neurological: Alert, Oriented, Normal Cognition, No Motor/Sensory Deficits Psychiatric: Normal Affect, Normal Mood Skin: Warm, Dry, Normal Color, No Rash, Wound/Incision (2cm linear laceration to posterior aspect of PIP) ED SKIN PROCEDURES - Laceration/Wound Repair Left Middle Posterior Digit - 2nd (Index) Appearance: Superficial, Linear, Clean Distal NVT: Neuro & Vascular Intact, No Tendon Injury Anesthetic Type: Local Local Anesthesia - Lidocaine (Xylocaine): 1% Plain Local Anesthetic Volume: 3cc Skin Prep: Chlorhexidine (Hibiciens), Saline Exploration/Debridement/Repair: Wound Explored, In a Bloodless Field, Explored to Base, No Foreign Material Found Closed with: Sutures Lac/Wound length In cm: 2 Suture Size: 4-0 # of Sutures: 5 Suture Type: Prolene, Interrupted, Simple Sterile Dressing Applied: Nurse Tetanus Status Addressed: Yes Complications: No Course - Orders/Labs/Meds Meds: Medications Discontinued Medications Generic Name Dose Route Start Last Admin Trade Name Karen PRN Reason Stop Dose Admin Lidocaine HCl 10 ml 11/09/19 18:47 11/09/19 18:58 Xylocaine 1% INJECT 11/09/19 18:48 10 ml ONETIME ONE Administration Departure - Departure Time of Disposition: 18:56 Disposition: Home, Self-Care 01 Condition: Good Clinical Impression: Finger laceration Qualifiers: Encounter type: initial encounter Finger: index finger Damage to nail status: without damage Foreign body presence: without foreign body Laterality: left Qualified Code(s): S61.211A - Laceration without foreign body of left index finger without damage to nail, initial encounter - Discharge Information *PRESCRIPTION DRUG MONITORING PROGRAM REVIEWED*: No *COPY OF PRESCRIPTION DRUG MONITORING REPORT IN PATIENT KATTY: No Instructions: Sutured Wound Care, [id number] Referrals: Diana Belle PA-C [Primary Care Provider] - Forms: ED Department Discharge Additional Instructions: You have been evaluated in the ED for your laceration. Sutures will need to stay in for 10-14 days (11/18-11/22). You may return to the ED or any clinic for removal. Please keep this area clean and dry, you may cleanse with regular soap and water. No vigorous scrubbing. Watch out for signs of infection like increased redness, swelling, pain at the laceration site, or if you should develop any fevers or chills. Please return to ED if your symptoms change or worsen. Sepsis Event Note - Evaluation Sepsis Screening Result: No Definite Risk - Focused Exam Date Exam was Performed: 11/09/19 Time Exam was Performed: 19:26
== END 2019-11-09 19:35 | disposition home or self-care (01) ==
LOC: JD.ED 18:20
DX: S61.211A Laceration without foreign body of left index finger without damage to nail, initial encounter (principal); Z91.018 Allergy to other foods; Z88.8 Allergy status to other drugs, medicaments and biological substances; Z79.82 Long term (current) use of aspirin; Z79.899 Other long term (current) drug therapy; W26.0XXA Contact with knife, initial encounter
CPT/HCPCS: 12001; 99282; J2001

== ENCOUNTER 2022-01-08 07:57 | Emergency (ER) | payer OTHER ==
[2022-01-08 08:24] VITALS: BP 134/88; PULSE 108
[2022-01-08] MEDS ORDERED: Famotidine 20 MG/2 ML SDV IVPUSH ONE (08:37)
[2022-01-08] MEDS ORDERED: diphenhydrAMINE 50 MG/ML SDV IVPUSH ONE (08:37)
[2022-01-08] MEDS ORDERED: Sodium Chloride 0.9% 10 ML Syringe FLUSH PRN (08:37)
[2022-01-08] MEDS ORDERED: methylPREDNISolone Sodium Succinate 125 MG/2 ML SDV IVPUSH ONE (08:37)
[2022-01-08] MEDS ORDERED: Ondansetron 4 MG/2 ML SDV IVPUSH ONE (09:00)
[2022-01-08 09:31] LABS: ESTIMATED GFR > 60 mL/min (>60)
== END 2022-01-08 10:35 | disposition home or self-care (01) ==
LOC: JD.ED 07:57
DX: R21 Rash and other nonspecific skin eruption (principal); E78.00 Pure hypercholesterolemia, unspecified; K21.9 Gastro-esophageal reflux disease without esophagitis; E10.9 Type 1 diabetes mellitus without complications; E03.9 Hypothyroidism, unspecified; Z91.018 Allergy to other foods; Z88.8 Allergy status to other drugs, medicaments and biological substances; Z79.82 Long term (current) use of aspirin; Z79.899 Other long term (current) drug therapy
CPT/HCPCS: 36415; 80053; 82947; 85025; 85652; 86140; 96374; 96375; 99283; J1200; J2405; J2930; J3490; 99284